=== PATIENT | male | born 1975 | race Caucasian/White ===

== ENCOUNTER 2022-05-11 16:19 | Emergency (ER) | payer BC, SELFPAY ==
[2022-05-11 16:24] VITALS: BP 144/92; RESP 18; TEMP 36.6; O2SAT 95; BMI 45.4
[2022-05-11] MEDS: 0.9 % SODIUM CHLORIDE 1000 ml 1,000 ML IV ×2 (17:07→18:41)
[2022-05-11 17:21] LABS: Basophils Absolute Auto 0.02 K/uL (0.00-0.30); Basophils Percent Auto 0.2 % (0.0-3.0); Hematocrit 41.4 % (37.0-53.0); Hemoglobin* 14.2 gm/dL (13.5-17.5); Immature Granulocytes Abs Auto 0.03 K/uL (0.00-0.30); Lymphocytes Percent Auto 17.8 % (20-44); Mean Corpuscular HGB Conc 34 gm/dL (32-36); Mean Corpuscular Hemoglobin 31 pg (26-34); Mean Corpuscular Volume 91 fL (80-100); Monocytes Percent Auto 5.9 % (0.0-11.0); Neutrophils Percent Auto 75.8 % (42.0-72.0); Platelet Count* 271 K/uL (140-440); RDW Coefficient of Variation % 12.2 % (11.5-15.5); Red Blood Count 4.54 m/uL (4.30-5.90); White Blood Count* 10.33 K/uL (4.50-11.00)
[2022-05-11 17:31] LABS: Troponin, Point-of-Care* 0.01 ng/ml (0.01-0.04)
[2022-05-11 17:32] LABS: Chloride* 102 mmol/L (96-114); Sodium* 137 mmol/L (135-149)
[2022-05-11 17:34] LABS: Slide Review Reflex No
[2022-05-11 17:35] LABS: Creatinine* 0.8 mg/dL (0.5-1.5); Est. Creatinine Clearance* 141.65; Estimated Glomerular Filt Rate 111 ml/min
[2022-05-11 17:36] LABS: Blood Urea Nitrogen* 14 mg/dL (5-24); Calcium* 8.9 mg/dL (8.4-10.6); Carbon Dioxide* 26 mmol/L (20-32); Glucose* 114 mg/dL (60-115)
[2022-05-11 17:39] LABS: C Reactive Protein* 0.7 mg/dL (0.5-1.0)
--- NOTE | 2022-05-11 17:52 | CRLHL7_ITS ---
For Patients: As a result of the Century Cures Act, medical imaging exams and procedure reports are released immediately into your electronic medical record. You may view this report before your referring provider. If you have questions, please contact your health care provider. INDICATION: Evaluate for aneurysm. TECHNIQUE: Noncontrast CT images acquired through the brain. COMPARISON: None. FINDINGS: The ventricles and sulci are within normal limits for patient age. No mass effect or midline shift. The holley-white differentiation is maintained. No acute intracranial hemorrhage or pathologic extra-axial fluid collection. The globes are symmetric. The calvarium is intact. The visualized paranasal sinuses and mastoid air cells are clear. IMPRESSION: No acute intracranial hemorrhage or mass effect. Please note that all CT scans at this facility use dose modulation, iterative reconstruction, and/or weight-based dosing when appropriate to reduce radiation dose to as low as reasonably achievable. Dictated by Feliberto Washburn MD @ 05/11/2022 6:24:38 PM (Electronically Signed)
--- NOTE | 2022-05-11 17:52 | CT_ITS ---
Patient: ONEIL SMILEY Facility:?[facility] Patient ID:?[id number] Site Patient ID:?[id number]. Site :?1975 Study:?CT-Neck Angio Angio W/ 95CC [id number]/22/2022 6:20:41 PM Ordering Physician:Igor Fonseca Final Report: INDICATION: Severe headache. TECHNIQUE: CTA neck with contrast bolus tracking and 3D MIP reconstruction. FINDINGS: There is no carotid or vertebral artery stenosis or dissection. The soft tissues of the neck are within normal limits. The cervical spine is in normal alignment. IMPRESSION: Unremarkable neck CTA. Please note that all CT scans at this facility use dose modulation, iterative reconstruction, and/or weight-based dosing when appropriate to reduce radiation dose to as low as reasonably achievable. Dictated by Jaskaran Melendez MD @ 05/12/2022 1:00:36 PM Signed by:?Jaskaran Melendez MD @05/12/2022 1:00:36 PM (Electronic Signature)
--- NOTE | 2022-05-11 17:52 | CT_ITS ---
Patient: ONEIL SMILEY Facility:?[facility] Patient ID:?[id number] Site Patient ID:?[id number]. Site :?1975 Study:?CT-Head Angio W/ 95CC [id number]/22/2022 6:20:45 PM Ordering Physician:Igor Fonseca Final Report: INDICATION: Severe headache. TECHNIQUE: CTA head with contrast bolus tracking and 3D MIP reconstruction. FINDINGS: There is normal opacification of the intracranial vasculature. There is no large vessel occlusion. No aneurysm is identified. IMPRESSION: Unremarkable head CTA. Please note that all CT scans at this facility use dose modulation, iterative reconstruction, and/or weight-based dosing when appropriate to reduce radiation dose to as low as reasonably achievable. Dictated by Jaskaran Melendez MD @ 05/12/2022 12:58:51 PM Signed by:?Jaskaran Melendez MD @05/12/2022 12:58:51 PM (Electronic Signature)
[2022-05-11 17:57] LABS: D Dimer Quantitative* 0.38 ug/ml (0.00-0.50)
[2022-05-11 18:01] LABS: PCR FLU A Negative PCR FLU A (Negative); PCR FLU B Negative PCR FLU B (Negative); PCR RSV Negative PCR RSV (Negative)
[2022-05-11 18:03] LABS: SARS PCR* Negative SARS-CoV-2 (Negative)
[2022-05-11] MEDS: diphenhydrAMINE 25 MG in 0.9 % SODIUM CHLORIDE 100 ml 100 ML 402 MG IVPB (18:42)
[2022-05-11] MEDS: METOCLOPRAMIDE HCL 10 MG in 0.9 % SODIUM CHLORIDE 100 ml 100 ML 306 MG IVPB (19:18)
[2022-05-11 19:43] VITALS: BP 138/92; PULSE 70; RESP 16; O2SAT 98
[2022-05-11 20:18] VITALS: BP 138/92; PULSE 70; RESP 16; TEMP 36.6
--- NOTE | 2022-05-11 22:27 | ED_ITS ---
HPI - Headache General Date Seen: 05/11/22 Chief Complaint: Headache/Migraine Stated Complaint: Headaches Time Seen by Provider: 05/11/22 16:21 Source: patient Mode of arrival: ambulatory Limitations: no limitations History of Present Illness HPI Narrative: Patient is a really nice 46-year-old gentleman who presents here with a headache, he described as bitemporal, it is pulsing whenever he bends down, or comes back. He noted a little bit of blurry vision yesterday, but overall he feels his visions normal, he feels slightly nauseous but has not vomited. His appetite remains normal he denies any numbness tingling or weakness in his hands or feet, he has had no fevers or chills associated with this. No recent camping or travel noted. He has a history of headaches, but says this is worse than his normal headache, does not exertional based and did not come on with exertion. Denies a history of meth family or personally of any aneurysmal disease kidney disease, no history of falls or injury. He has started however 4 days ago Medrol Dosepak, for shoulder discomfort. He wonders if this is related to this. MD elicited complaint: headache Onset description: gradually Location: right, left and temporal Severity: moderate Quality & Timing: throbbing and pulsatile Exacerbating factors: none Relieving factors: nothing Context: occurred at rest Associated symptoms: nausea and lightheadedness Treatments prior to arrival: acetaminophen and ibuprofen Related Data Home Medications Medication Instructions Recorded Confirmed ibuprofen 200 mg tablet mg PO .Q6h Prn 03/21/22 05/11/22 naproxen sodium 220 mg tablet 220 mg PO BID 03/21/22 05/11/22 Previous Rx's Medication Instructions Recorded gabapentin 300 mg capsule 300 - 600 mg PO TID 90 days #360 03/21/22 caps methylprednisolone 4 mg tablet See Rx Instructions PO QAM #21 tabs 05/08/22 (Medrol) antiarthritic combination no.2 900 See Rx Instructions PO DAILY #30 05/11/22 mg tablet (glucosamine-chondroitin) tabs Allergies Allergy/AdvReac Type Severity Reaction Status Date / Time acetaminophen AdvReac Intermediate Nausea Verified 05/11/22 18:08 hydrocodone AdvReac Intermediate Nausea Verified 05/11/22 18:08 Review of Systems Status of ROS: Reports: 10 or more systems reviewed and unremarkable except as noted in History and below [facility] Medical History History of blood clots Surgical History History of knee surgery History of repair of anterior cruciate ligament History of rotator cuff surgery History of thumb surgery Family History Mother Breast cancer, Onset Age: 37 Father Stroke, Onset Age: 52 High blood pressure Paternal Grandmother Skin cancer, Onset Age: 72 Sister Thyroid cancer, Onset Age: 40 Social History Narrative: alcohol ingestion, 1-4 drinks/week - 2-3 drinks per week does not use illicit drugs former smoker Smoking Status: Former smoker Do you use any of these nicotine containing products: None Second hand tobacco smoke exposure: Yes How often do you have a drink containing alcohol: 4 or more times a week How many standard drinks containing alcohol do you have on a typical day: 1 or 2 How often do you have six or more drinks on one occasion: Never AUDIT-C Alcohol total score: 4 Non-prescribed substance use: denies use service: No Exam Narrative: Exam Narrative: Patient is in no apparent distress in room 6, I enter the room and there is no evidence of any photophobia. He is nontoxic in speaking to me normally, speech is normal. Pupils are equal round reactive to light there is no scleral icterus or redness TMs are normal oropharynx is normal there is no adenopathy anterior posterior chains, neck is supple full range of motion with absence of meningismus. Cranial nerves 3-12 are normal. Oropharynx is normal, TMs are normal, neck has excellent full range of motion of flexion extension lateral flexion there is no nystagmus. Chest is clear bilaterally no wheezing crackles noted heart sounds are normal abdomen is soft and obese there is no guarding no past splenomegaly, normal bowel sounds. CV shows normal S1-S2 there is no S3-S4 clicks murmurs or gallops. Skin reveals no petechiae or rashes, neurologically intact in his upper lower extremities with symmetrical bilaterally strong both proximal distal muscle strength which is assessed and normal. Fine motor movements fingers nose testing are normal. Thoracic and lumbar spine are nontender to palpation percussion, an as negative also has a cervical spine. Const: Vital Signs, click to edit/add: Vital Signs - 24 hr 05/11/22 16:24 05/11/22 19:43 05/11/22 20:18 Temperature 98 F 98 F Pulse Rate [Pulse Oximeter] 70 70 Respiratory Rate 18 16 16 Blood Pressure [Le ft Upper Arm] 144/92 H 138/92 H 138/92 H Pulse Oximetry 95 98 Oxygen Delivery Me thod Room Air Room Air Course Course Hospital Course: Patient's headache here improved with the use of the Reglan, along with the Benadryl and fluids. I discussed with him that his laboratory tests were normal, with a negative D-dimer normal EKG, normal WBC, and no evidence of infection on examination his COVID swabs are negative also. I suspect that his headache comes from the use of the Medrol, which is a side effect of steroid specially at the high dose. Reassuring head CT along with a head CTA and neck CTA is also helpful. We will let him go home and have him stop his medications, he was comfortable this plan. Vital Signs Vital signs: Initial Vital Signs Temperature 98 F 05/11/22 16:24 Temperature Source Temporal Artery Scan 05/11/22 16:24 Pulse Rhythm 05/11/22 16:24 Respiratory Rate 18 05/11/22 16:24 Blood Pressure 144/92 H 05/11/22 16:24 Blood Pressure Mean 109 05/11/22 16:24 Pulse Oximetry 95 05/11/22 16:24 Oxygen Delivery Method 05/11/22 16:24 Vital Signs Temperature 98 F 05/11/22 16:24 Respiratory Rate 18 05/11/22 16:24 Blood Pressure 144/92 H 05/11/22 16:24 Pulse Oximetry 95 05/11/22 16:24 Oxygen Delivery Method 05/11/22 16:24 Temperature 98 F 05/11/22 20:18 Pulse Rate 70 05/11/22 20:18 Respiratory Rate 16 05/11/22 20:18 Blood Pressure 138/92 H 05/11/22 20:18 Pulse Oximetry 98 05/11/22 19:43 Oxygen Delivery Method 05/11/22 19:43 MDM - Headache MDM Narrative Medical decision making narrative: Life-threatening differential diagnosis include subarachnoid hemorrhage, meningitis, encephalitis, carbon monoxide poisoning, and intracerebral hemorrhage. Other differential diagnosis include but not limited to migraine, cluster headache, tension headache, [employer] vasculitis, mass lesion, temporal arteritis, click acute closed angle glaucoma, septal and trigeminal neuralgia, sinusitis, closed head injury, and stroke Medical Records Attestation: I reviewed the patient's medical records. Lab Data Attestation: I reviewed the patient's lab results. Labs: Lab Results 05/11/22 05/11/22 05/11/22 Range/Units 17:00 17:00 17:00 WBC 10.33 (4.50-11.00) K/uL RBC 4.54 (4.30-5.90) m/uL Hgb 14.2 (13.5-17.5) gm/dL Hct 41.4 (37.0-53.0) % MCV 91 (80-100) fL MCH 31 (26-34) pg MCHC 34 (32-36) gm/dL RDW Coeff of Tiera 12.2 (11.5-15.5) % Plt Count 271 (140-440) K/uL Neut % (Auto) 75.8 H (42.0-72.0) % Lymph % (Auto) 17.8 L (20-44) % O'Brien % (Auto) 5.9 (0.0-11.0) % Eos % (Auto) 0.0 (0.0-7.0) % Baso % (Auto) 0.2 (0.0-3.0) % Neut # (Auto) 7.80 H (1.7-7.0) K/uL Lymph # (Auto) 1.80 (0.90-2.90) K/uL O'Brien # (Auto) 0.60 (0.00-0.90) K/UL Eos # (Auto) 0.00 (0.00-0.50) K/uL Baso # (Auto) 0.02 (0.00-0.30) K/uL Abs Immat Gran (auto) 0.03 (0.00-0.30) K/uL D-Dimer Quant (PE/DVT) 0.38 (0.00-0.50) ug/ml Sodium 137 (135-149) mmol/L Potassium 4.0 (3.6-5.1) mmol/L Chloride 102 (96-114) mmol/L Carbon Dioxide 26 (20-32) mmol/L BUN 14 (5-24) mg/dL Creatinine 0.8 (0.5-1.5) mg/dL Estimated Creat Clear 141.65 Estimated GFR 111 ml/min Glucose 114 (60-115) mg/dL Calcium 8.9 (8.4-10.6) mg/dL C-Reactive Protein 0.7 (0.5-1.0) mg/dL SARS-CoV-2 (PCR) (Negative) Influenza Type A (PCR) (Negative) Influenza Type B (PCR) (Negative) RSV (PCR) (Negative) POC Troponin I (0.01-0.04) ng/ml 05/11/22 05/11/22 Range/Units 17:00 17:01 WBC (4.50-11.00) K/uL RBC (4.30-5.90) m/uL Hgb (13.5-17.5) gm/dL Hct (37.0-53.0) % MCV (80-100) fL MCH (26-34) pg MCHC (32-36) gm/dL RDW Coeff of Tiera (11.5-15.5) % Plt Count (140-440) K/uL Neut % (Auto) (42.0-72.0) % Lymph % (Auto) (20-44) % O'Brien % (Auto) (0.0-11.0) % Eos % (Auto) (0.0-7.0) % Baso % (Auto) (0.0-3.0) % Neut # (Auto) (1.7-7.0) K/uL Lymph # (Auto) (0.90-2.90) K/uL O'Brien # (Auto) (0.00-0.90) K/UL Eos # (Auto) (0.00-0.50) K/uL Baso # (Auto) (0.00-0.30) K/uL Abs Immat Gran (auto) (0.00-0.30) K/uL D-Dimer Quant (PE/DVT) (0.00-0.50) ug/ml Sodium (135-149) mmol/L Potassium (3.6-5.1) mmol/L Chloride (96-114) mmol/L Carbon Dioxide (20-32) mmol/L BUN (5-24) mg/dL Creatinine (0.5-1.5) mg/dL Estimated Creat Clear Estimated GFR ml/min Glucose (60-115) mg/dL Calcium (8.4-10.6) mg/dL C-Reactive Protein (0.5-1.0) mg/dL SARS-CoV-2 (PCR) Negative SARS-CoV-2 (Negative) Influenza Type A (PCR) Negative PCR FLU A (Negative) Influenza Type B (PCR) Negative PCR FLU B (Negative) RSV (PCR) Negative PCR RSV (Negative) POC Troponin I 0.01 (0.01-0.04) ng/ml Imaging Data CT scan - head: Attestation: I have reviewed the pertinent imaging results. My impression: Negative head CT, Radiologist's impression: Patient: [facility] Facility: [facility] Site . Site : 1975 Study: CT Head W/O-05/11/2022 6:20:48 PM Ordering Physician: Matthew Fonseca Final Report: INDICATION: Evaluate for aneurysm. TECHNIQUE: Noncontrast CT images acquired through the brain. COMPARISON: None. FINDINGS: The ventricles and sulci are within normal limits for patient age. No mass effect or midline shift. The holley-white differentiation is maintained. No acute intracranial hemorrhage or pathologic extra-axial fluid collection. The globes are symmetric. The calvarium is intact. The visualized paranasal sinuses and mastoid air cells are clear. IMPRESSION: No acute intracranial hemorrhage or mass effect. Please note that all CT scans at this facility use dose modulation, iterative reconstruction, and/or weight-based dosing when appropriate to reduce radiation dose to as low as reasonably achievable. Dictated by Feliberto Washburn MD @ 05/11/2022 6:24:38 PM (Electronic Signature) Patient: [facility] Facility: [facility] Site . Site : 1975 Study: CT Neck Angio Angio W/ 95CC [id number]/22/2022 6:20:41 PM Ordering Physician: Matthew Fonseca Preliminary Report: No intracranial aneurysm, arterial stenosis, or dissection. Read by: Feliberto Washburn MD @ 05/11/2022 18:28:56 Patient: ONEIL SMILEY Facility: [facility] Site . Site : 1975 Study: CT Head Angio W/ 95CC [id number]/22/2022 6:20:45 PM Ordering Physician: Matthew Fonseca Preliminary Report: No intracranial aneurysm, arterial stenosis, or dissection. Read by: Feliberto Washburn MD @ 05/11/2022 18:28:46 ECG Data Attestation: I personally reviewed and interpreted this ECG as follows: ECG interpretation date: 05/11/22 Prior ECG tracings: not available for review Interpretation: EKG shows normal sinus rhythm with a ventricular rate of 69 occasional PVCs are noted, nonspecific interventricular conduction delay, no ST wave changes, Assessment nonacute EKG Discharge Plan Discharge Clinical Impression: Drug side effects, Headache Patient Disposition: Home, Self-Care Condition: Stable Instructions: Tension Headache (ED), Acute Headache (DC), Adverse Drug Reaction (ED) Additional Instructions: RECOMMEND STOPPING YOUR STEROID, I THINK THIS IS THE CAUSE OF YOUR ISSUES, follow-up with primary care for more help with this. But rate now all your blood tests and your CT scans were reassuring you may. May use Tylenol Prescriptions: No Action ibuprofen 200 mg tablet PO .Q6h Prn naproxen sodium 220 mg tablet 220 mg PO BID gabapentin 300 mg capsule 300 - 600 mg PO TID 90 Days Qty: 360 3RF methylprednisolone [Medrol] 4 mg tablet See Rx Instructions PO QAM Qty: 21 0RF Rx Instructions: 6 tabs day 1 today. Reduce by 1 tab daily until final tab remains. orally every morning; glucosamine-chondroitin 900 mg tablet See Rx Instructions PO DAILY Qty: 30 0RF Rx Instructions: 1 tab orally daily; Follow Up/Referrals: Suri Gonzalez DO [Primary Care Provider] - Stand Alone Forms: MyHealth Info Instructions
--- OUTSIDE RECORDS SUMMARY | 2022-05-19 10:43 | XMS_ITS | Encounter Summary ---
:1975 Author Organization [facility] Address [address] [place] [address] Care Team Providers Name Role Phone Diego Herrmann MD Primary Care Provider [phone] Adonis Stanford MD Unavailable [phone] Encounter Details Date Type Department Care Team Description 08/18/2020 Travel Social History Tobacco Use Types Packs/Day Years Used Date Former Smoker Cigarettes 0.5 3 Smokeless Tobacco: Never Used Comments: quit in 2006 Alcohol Use Standard Drinks/Week Comments Yes 0 (1 standard drink = 0.6 oz pure alcoho l) Alcohol Habits Answer Date Recorded How often do you have a drink containing alcohol? Never 05/28/2020 How many drinks containing alcohol do you have on a typical Not asked 05/28/2020 day when you are drinking? How often do you have six or more drinks on one occasion? Ne evy 05/28/2020 Comment: Not asked Sex Assigned at Date Recorded Not on file COVID-19 Exposure Response Date Recorded In the last month, have you been in contact with No / Unsure 08/18/2020 4:40 PM MAST [employer] someone who was confirmed or suspected to have Coronavirus / COVID-19? documented as of this encounter Plan of Treatment Not on filedocumented as of this encounter Visit Diagnoses Not on filedocumented in this encounter Care Teams [employer] Relationship Specialty Start Date End Date Diego Herrmann MD PCP - General 05/13/20 Adonis Stanford Assigned Heart and Vascular 0 12/17/21 MD Misael Provider [address] [place], [place] [id number] [place] [id number] documented as of this encounter
--- OUTSIDE RECORDS SUMMARY | 2022-05-19 10:43 | XMS_ITS | Clinical Summary ---
:1975 Author Organization [facility] Address [address] [place] [address] Care Team Providers Name Role Phone Diego Herrmann MD Primary Care Provider [phone] Allergies Active Allergy Reactions Severity Noted Date Comments Acetaminophen Nausea 03/08/2020 Hydrocodone Nausea 03/08/2020 Hydrocodone-Acetaminophen Nausea 04/23/2018 Medications No known medications Active Problems No known active problems Immunizations Name Administration Dates Next Due Influenza Vaccine IM > 6 months Valent 06/30/2020, , 10/29/2018 IIV4 (Alfuria,Fluzone) Social History Tobacco Use Types Packs/Day Years Used Date Former Smoker Cigarettes 0.5 3 Smokeless Tobacco: Never Used Tobacco Cessation: Counseling Given: Yes Comments: quit in 2006 Alcohol Use Standard [...] Assigned at Date Recorded Not on file Last Filed Vital Signs Vital Sign Reading Time Taken Comments Blood Pressure 127/80 05/28/2020 11:12 AM CDT Pulse 74 05/28/2020 11:11 AM CDT Temperature - - Respiratory Rate 16 05/28/2020 11:11 AM CDT Oxygen Saturation 96% 05/28/2020 11:11 AM CDT Inhaled Oxygen Concentration - - Weight 173.7 kg (383 lb) 05/28/2020 11:11 AM CDT Height 193 cm (6' 4) 05/28/2020 11:11 AM CDT Body Mass Index 46.62 05/28/2020 11:11 AM CDT Plan of Treatment Health Maintenance Due Date Last Done Comments ADVANCE CARE PLANNING 1975 ANNUAL REVIEW OF HM ORDERS 1975 CT COLONOGRAPHY 1975 FIT-DNA (Cologuard) 1975 FIT 1975 FLEX SIG 1975 PREVENTIVE CARE VISIT 1975 COVID-19 Vaccine (#1) 1975 COLONOSCOPY 1985 COLORECTAL CANCER SCREENING 1985 HIV SCREENING 1990 HEPATITIS C SCREENING 1993 DTAP/TDAP/TD IMMUNIZATION 2000 (1 - Tdap) LIPID 2010 PHQ-2 (once per calendar 08/20/2021 year) INFLUENZA VACCINE (#1) 2022 06/30/2020, 06/30/2020, 04/17/2019, Additional history exists HEPATITIS B IMMUNIZATION Aged Out No long er eligible based on patient 's age to complete this topic IPV IMMUNIZATION Aged Out No longer eligi ble based on patient 's age to complete this topic MENINGITIS IMMUNIZATION Aged Out No longe r eligible based on patient 's age to complete this topic Pneumococcal Vaccine: Aged Out No longer eligible Pediatrics (0 to 5 Years) based on patient's age and At-Risk Patients (6 to to co mplete this topic 64 Years) Insurance Payer Benefit Plan / Subscriber ID Effective Dates Phone Addre ss Type Group BCBS BCBS OF [place] [id number] 2016-Ritika [phone] [address] [address] Indemnity t 0 [place] [address] [address] [place] [address] Care Teams Commercial Print Salesman Relationship Specialty Start Date End Date Diego Herrmann MD PCP - General 05/13/20
--- OUTSIDE RECORDS SUMMARY | 2022-05-19 10:44 | XMS_ITS | Encounter Summary ---
:1975 Author Organization [facility] Address [address] [place] [address] Care Team Providers Name Role Phone Diego Herrmann MD Primary Care Provider [phone] Adonis Stanford MD Unavailable [phone] Reason for Visit Rehab Therapy Integrated Services (Routine) - Closed Specialty Diagnoses / Procedures Referred By Contact Refer red To Contact Diagnoses Back pain, falls Weakness order sent to chart [facility] [address] [place], [place] [address] Phone: Fax: Referral ID Status Reason Start Date Expiration Date Visits Requ ested Visits Authorized [id number] Closed 06/30/2020 08/19/2020 365 365 Encounter Details Date Type Department Care Team Description 07/26/2020 Hospital Encounter [facility] Adonis Stanford MD [address] [facility] [address] [place] [id number] Rehabilitation Services Ileana Deras, PT [facility] [address] [place] [address] Social History Tobacco Use Types Packs/Day Years [...] been in contact with No / Unsure 07/26/2020 4:50 PM CONTINUITY COORDINATOR someone who was confirmed or suspected to have Coronavirus / COVID-19? documented as of this encounter Plan of Treatment Not on filedocumented as of this encounter Visit Diagnoses Not on filedocumented in this encounter Care Teams Purchaser Automotive Parts Relationship Specialty Start Date End Date Diego Herrmann MD PCP - General 05/13/20 Adonis Stanford Assigned Heart and Vascular 0 12/17/21 MD Misael Provider [address] [place] [id number] documented as of this encounter
--- OUTSIDE RECORDS SUMMARY | 2022-05-19 10:44 | XMS_ITS | Encounter Summary ---
:1975 Author Organization [facility] Address [address] [place] [address]. [place] [address] Care Team Providers Name Role Phone Diego Herrmann MD Primary Care Provider [phone] Adonis Stanford MD Unavailable [phone] Encounter Details Date Type Department Care Team Description 06/18/2020 Medical Correspond[facility], ADULT REHAB ORDER Health Info Mgmt Non-Provider DR [facility] [address] [place] [address] Social History Tobacco Use Types Packs/Day Years [...] been in contact with No / Unsure 06/18/2020 11:06 AM CDT someone who was confirmed or suspected to have Coronavirus / COVID-19? documented as of this encounter Plan of Treatment Not on filedocumented as of this encounter Visit Diagnoses Not on filedocumented in this encounter Care Teams Claims Collector Relationship Specialty Start Date End Date Diego Herrmann MD PCP - General 05/13/20 Adonis Stanford Assigned Heart [facility] Vascular 0 12/17/21 MD Misael Provider [address] [place] [address] documented as of this encounter
--- OUTSIDE RECORDS SUMMARY | 2022-05-19 10:44 | XMS_ITS | Encounter Summary ---
:1975 Author Organization [facility] Address [address] [place] [address] Care Team Providers Name Role Phone Diego Herrmann MD Primary Care Provider [phone] Adonis Stanford MD Unavailable [phone] Encounter Details Date Type Department Care Team Description 06/15/2020 Travel Social History Tobacco Use Types Packs/Day Years Used Date Former Smoker Cigarettes 0.5 3 Smokeless Tobacco: Never Used Comments: quit in 2006 Alcohol Use Standard Drinks/Week Comments Never 0 (1 standard drink = 0.6 oz [...] been in contact with No / Unsure 06/15/2020 11:15 AM CDT someone who was confirmed or suspected to have Coronavirus / COVID-19? documented as of this encounter Plan of Treatment Not on filedocumented as of this encounter Visit Diagnoses Not on filedocumented in this encounter Care Teams Financial Secretary Relationship Specialty Start Date End Date Diego Herrmann MD PCP - General 05/13/20 Adonis Stanford Assigned Heart and Vascular 0 12/17/21 MD Misael Provider [address] [place], [place] [id number] [place] [id number] documented as of this encounter
--- OUTSIDE RECORDS SUMMARY | 2022-05-19 10:44 | XMS_ITS | Encounter Summary ---
:1975 Author Organization [facility] Address [address] [place] [address] Care Team Providers Name Role Phone Diego Herrmann MD Primary Care Provider [phone] Adonis Stanford MD Unavailable [phone] Encounter Details Date Type Department Care Team Description 06/11/2020 Travel Social History Tobacco Use Types Packs/Day [...] been in contact with No / Unsure 06/11/2020 12:48 PM CDT someone who was confirmed or suspected to have Coronavirus / COVID-19? documented as of this encounter Plan of Treatment Not on filedocumented as of this encounter Visit Diagnoses Not on filedocumented in this encounter Care Teams Jig Boring Machine Operator For Metal Relationship Specialty Start Date End Date Diego Herrmann MD PCP - General 05/13/20 Adonis Stanford Assigned Heart and Vascular 0 12/17/21 MD Misael Provider [address] [place], [place] [id number] [place] [id number] documented as of this encounter
--- OUTSIDE RECORDS SUMMARY | 2022-05-19 10:44 | XMS_ITS | Encounter Summary ---
:1975 Author Organization [address] [place] [address] Care Team Providers Name Role Phone Diego Herrmann MD Primary Care Provider [phone] Adonis Stanford MD Unavailable [phone] Reason for Visit Rehab Therapy Integrated Services (Routine) - Closed Specialty Diagnoses / Procedures Referred By Contact Refer red To Contact Diagnoses Lymphedema of right lower extremity [facility] [address] [place], [place] [address] Phone: Fax: Referral ID Status Reason Start Date Expiration Date Visits Requ ested Visits Authorized [id number] Closed 06/11/2020 08/19/2020 365 365 Encounter Details Date Type Department Care Team Description 06/18/2020 Hospital Encounter [facility] Adonis Stanford MD [address] [id number] Rehabilitation Services Katherine Koch OT [address] [facility] [address] [place] [address] Social History Tobacco Use Types Packs/Day Years [...] on filedocumented in this encounter Care Teams Gas Plumbing Inspector Relationship Specialty Start Date End Date Diego Herrmann MD PCP - General 05/13/20 Adonis Stanford Assigned Heart and Vascular 0 12/17/21 MD Misael Provider [address] [place] [address] documented as of this encounter
--- OUTSIDE RECORDS SUMMARY | 2022-05-19 10:44 | XMS_ITS | Encounter Summary ---
:1975 Author Organization [facility] Address [address] [place] [address] Care Team Providers Name Role Phone Diego Herrmann MD Primary Care Provider [phone] Adonis Stanford MD Unavailable [phone] Reason for Visit Rehab Therapy Integrated Services (Routine) - Closed Specialty Diagnoses / Procedures Referred By Contact Refer red To Contact Diagnoses Back pain, falls Weakness order sent to chart [facility] [address] [place], [place] [address] Phone: Fax: Referral ID Status Reason Start Date Expiration Date Visits Requ ested Visits Authorized [id number] Closed 06/30/2020 08/19/2020 365 365 Encounter Details Date Type Department Care Team Description 07/28/2020 Hospital Encounter [facility] Adonis Stanford MD [address] [facility] [address] [place] [id number] Rehabilitation Services Ileana Deras, PT [facility] [address] [place] [address] Social History Tobacco Use [...] been in contact with No / Unsure 07/28/2020 5:01 PM BUTTON MACHINE OPERATOR someone who was confirmed or suspected to have Coronavirus / COVID-19? documented as of this encounter Plan of Treatment Not on filedocumented as of this encounter Visit Diagnoses Not on filedocumented in this encounter Care Teams General Education Instructor Relationship Specialty Start Date End Date Diego Herrmann MD PCP - General 05/13/20 Adonis Stanford Assigned Heart and Vascular 0 12/17/21 MD Misael Provider [address] [place] [address] documented as of this encounter
--- OUTSIDE RECORDS SUMMARY | 2022-05-19 10:44 | XMS_ITS | Encounter Summary ---
:1975 Author Organization [facility] Address [facility] [place] [address] Care Team Providers Name Role Phone Diego Herrmann MD Primary Care Provider [phone] Adonis Stanford MD Unavailable [phone] Reason for Visit Rehab Therapy Integrated Services (Routine) - Closed Specialty Diagnoses / Procedures Referred By Contact Refer red To Contact Diagnoses Back pain, falls Weakness order sent to chart [facility] [address] [place], [place] [address] Phone: Fax: Referral ID Status Reason Start Date Expiration Date Visits Requ ested Visits Authorized [id number] Closed 06/30/2020 08/19/2020 365 365 Encounter Details Date Type Department Care Team Description 07/07/2020 Hospital Encounter [facility] Adonis Stanford MD [address] [facility] [address] [place] [address] Canceled Rehabilitation Ileana Deras, PT (Rescheduled) Services [address] [address] Social History Tobacco Use Types Packs/Day [...] been in contact with No / Unsure 07/02/2020 12:13 PM PIPELINE SYSTEMS OPERATOR someone who was confirmed or suspected to have Coronavirus / COVID-19? documented as of this encounter Plan of Treatment Not on filedocumented as of this encounter Visit Diagnoses Not on filedocumented in this encounter Care Teams Anesthesia Attending Relationship Specialty Start Date End Date Diego Herrmann MD PCP - General 05/13/20 Adonis Stanford Assigned Heart and Vascular 0 12/17/21 MD Misael Provider [address] [place] [address] documented as of this encounter
--- OUTSIDE RECORDS SUMMARY | 2022-05-19 10:44 | XMS_ITS | Encounter Summary ---
:1975 Author Organization [facility] Address Counts include 234 beds at the [facility] [place] [address] Care Team Providers Name Role Phone Diego Herrmann MD Primary Care Provider [phone] Adonis Stanford MD Unavailable [phone] Reason for Visit Rehab Therapy Integrated Services (Routine) - Closed Specialty Diagnoses / Procedures Referred By Contact Refer red To Contact Diagnoses Lymphedema of right lower extremity [facility] [address] [place], [place] [address] Phone: Fax: Referral ID Status Reason Start Date Expiration Date Visits Requ ested Visits Authorized [id number] Closed 06/11/2020 08/19/2020 365 365 Encounter Details Date Type Department Care Team Description 07/09/2020 Hospital Encounter [facility] Aodnis Stanford MD [address] [facility] [place] [id number] Rehabilitation Services Feliberto Anderson [facility] [address] [place] [address] [address] Social History Tobacco Use Types [...] been in contact with No / Unsure 07/09/2020 12:49 PM RAILROAD COOK someone who was confirmed or suspected to have Coronavirus / COVID-19? documented as of this encounter Progress Notes Feliberto Anderson Fermín - 07/09/2020 11:59 PM CST Outpatient Occupational Therapy Discharge Note Patient: Eduardo Charles : 1975 Beginning/End Dates of Reporting Period: 06/11/20 to 01/09/2021 Referring Provider: Dr. Stanford Therapy Diagnosis: lymphedema Client Self Report: Objective Measurements: see flowsheet Outcome Measures (most recent score): LLIS not scored; pt did not complete services Goals: Goal Identifier 1 Goal Description In order to improve functional mobility for activities of living, by the completionof intensive treatment, patient and/or caregiver will;Verbalize and/or demonstrate understanding oftechniques to independently manage their lymphedema at home Target Date 08/19/20 Date Met Progress: Goal Identifier 1a Goal Description tolerate gradient compression bandaging/wearing compression garments 23 hrs/day to decrease volume of extracellular fluid Target Date 08/19/20 Date Met 06/22/20 Progress: Goal Identifier 1b Goal Description demonstrate independence in applying gradient compression bandages Target Date 08/19/20 Date Met 06/24/20 Progress: Goal Identifier 1c Goal Description demonstrate independence in performing prescribed exercises to facilate the lymph system Target Date 08/19/20 Date Met Progress: Goal Identifier 1d Goal Description be independent in donning/doffing, wearing schedule, and care of compression garments Target Date 08/19/20 Date Met Progress: Goal Identifier 2 Goal Description Pt will decrease pain and swelling in the RLE to 2/10 with 30 min walking in store. Target Date 08/19/20 Date Met Progress: Goal Identifier Goal Description Target Date Date Met Progress: Goal Identifier Goal Description Target Date Date Met Progress: Progress Toward Goals: Progress this reporting period: Pt and spouse built I with GCB use and reduced LE lymphedema. Pt reported benefits from MLD use and he and spouse were using MLD at home for management as well. Pt was to return for follow up to gauge utility daytime stocking transition and overall home management. Pt has not returned for follow up; pt to be discharged. Plan: Discharge from therapy. Discharge: Reason for Discharge: No further expectation of progress. Patient chooses to discontinue therapy. Equipment Issued: Discharge Plan: cont Home plan documented in this encounter Plan of Treatment Not on filedocumented as of this encounter Visit Diagnoses Not on filedocumented in this encounter Care Teams Certified Travel Counselor Relationship Specialty Start Date End Date Diego Herrmann MD PCP - General 05/13/20 Adonis Stanford Assigned Heart and Vascular 0 12/17/21 MD Misael Provider [address] [place] [address] documented as of this encounter
--- OUTSIDE RECORDS SUMMARY | 2022-05-19 10:44 | XMS_ITS | Encounter Summary ---
:1975 Author Organization [facility] Address Replaced by [facility] [place] [address] Care Team Providers Name Role Phone Diego Herrmann MD Primary Care Provider [phone] Adonis Stanford MD Unavailable [phone] Reason for Referral (Routine) - Closed Specialty Diagnoses / Procedures Referred By Contact Refer red To Contact Diagnoses Varicose veins of leg with pain, right Lymphedema of right lower extremity Morbid obesity (H) Cellulitis of right lower extremity TINA (obstructive sleep apnea) Adonis Stanford MD [address] [facility] [address] [place] [address] Referral ID Status Reason Start Date Expiration Date Visits Requ ested Visits Authorized [id number] Closed 08/17/2020 08/17/2021 1 1 RGY AND IMMUNOLOGY SPECIALIST Reason for Visit Reason Comments Telephone (Routine) - Closed Specialty Diagnoses / Procedures Referred By Contact Refer red To Contact Diagnoses Varicose veins of leg with pain, right Lymphedema of right lower extremity Morbid obesity (H) Cellulitis of right lower extremity TINA (obstructive sleep apnea) Adonis Stanford MD [address] [facility] [address] [place] [address] Referral ID Status Reason Start Date Expiration Date Visits Requ ested Visits Authorized [id number] Closed 05/28/2020 05/28/2021 1 1 Encounter Details Date Type Department Care Team Description 06/16/[address] [facility] Adonis Stanford veins of leg with pain, right ( CEAP 4 CVI RT leg) ; Vascular Clinic Xavier Douglas MD Lymphedema of right lower extremity ( ph shakir -lymphedema) ; [address] Mo rbid obesity (H); [address] Cellulitis of right lower extremity; [place] [address] [place] [address] TINA (obstructive sleep apnea) [phone] Social History Tobacco Use Types Packs/Day Years [...] been in contact with No / Unsure 08/02/2020 4:41 PM ALLERGY AND IMMUNOLOGY SPECIALIST someone who was confirmed or suspected to have Coronavirus / COVID-19? documented as of this encounter Patient Instructions Patient InstructionsGoAdonis stallworth MD - 06/16/2020 1:30 PM CDT Lose weight Continue lymphedema therapy Elevate legs Compression stockings etc Use CPAP See me in spring 2020 to reassess options of venous ablation etc documented in this encounter Progress Notes Adonis Stanford MD - 06/16/2020 1:30 PM CDT Eduardo Charles is a 45 year old male who is being evaluated via a billable telephone visit. The patient has been notified of following: This telephone visit will be conducted via a call between you and your physician/provider. We have found that certain health care needs can be provided without the need for a physical exam. This service lets us provide the care you need with a short phone conversation. If a prescription is necessary we can send it directly to your pharmacy. If lab work is needed we can place an order for that and you can then stop by our lab to have the test done at a later time. Telephone visits are billed at different rates depending on your insurance coverage. During this emergency period, for some insurers they may be billed the same as an in-person visit. Please reach out to your insurance provider with any questions. If during the course of the call the physician/provider feels a telephone visit is not appropriate, you will not be charged for this service. Patient has given verbal consent for Telephone visit? Yes What phone number would you like to be contacted at? [phone] How would you like to obtain your AVS? Mynor Stone MA Provider visit note: Chief complaint: Follow up visit Seen lymphedema therapist Underwent Venous comp test yesterday History of present illness: He was recently seen 3 weeks ago for Evaluation and management of vascular causes of right lower extremity swelling, pain and recent prolonged cellulitis requiring 3 different antibiotics and no history of a DVT venous duplex was negative in october 2019. He is morbidly obese weight >380 lb, with Phle armida-lymphedema. For full details please see my recent clinic visit note Review of systems: Reviewed all 12 point review of systems as per HPI otherwise unremarkable Physical exam:( no physical exam done this is virtual visit) Reviewed recent laboratory tests, imaging studies in the epic and updated chart Assessment and plan: 1. Lymphedema of right lower extremity ( phlebo -lymphedema) 2. Varicose veins of leg with pain, right ( CEAP 4 CVI RT leg) 3. Recent Hx of Cellulitis of right lower extremity ?? This is a very pleasant 45-year-old male morbidly obese with classical features of right lower extremity lymphedema during last in office visit , specifically Phlebo- lymphedema and recent history of prolonged cellulitis requiring 3 different courses of antibiotics and healing leg ulcers and no signs of arterial insufficiency, palpable and dopplerable bilateral pedal pulses He will benefit with compression stockings and elevation of the legs and weight loss Reviewed recent venous comp results, NO DVT GSV , VV incompetency noted continue lymphedema therapist recs and MLD, compression etc. Skin care discussed with the patient See me in the office in spring 2020 ?? 4. Morbid obesity (H) 5. TINA (obstructive sleep apnea) ?? He was evaluated and diagnosed TINA but not using CPAP machine regularly Suggested patient to lose weight Utilize CPAP machine If needed discussed with sleep clinic for proper settings Video Visit Details Type of Service: Video Visit Video Start Time: 1:35 PM Video End Time: 1: 50 PM Originating Location (patient location): Home Distant Location ([facility] Mode of Communication: Video Conference via [employer] This visit is being conducted as a virtual visit due to the emphasis on mitigation of the COVID-19 virus pandemic. The clinician has decided that the risk of an in-office visit outweighs the benefit for this patient. Adonis Stanford MD, [facility], [facility] Vascular Medicine documented in this encounter Miscellaneous Notes Addendum Note - Marleny Chambers RN - 06/16/2020 1:30 PM CDT Addended by: MARLENY CHAMBERS on: 08/17/2020 03:12 PM Modules accepted: Orders RGY AND IMMUNOLOGY SPECIALIST documented in this encounter Plan of Treatment Scheduled Referrals Name Type Priority Associated Diagnoses Order S chedule Follow-Up with Referral Routine Varicose veins of leg Expe cted: 11/18/2020 Vascular Medicine with pain, right ( CEAP (Approximate), 4 CVI RT leg) Expires: 03/19/2021 Lymphedema of right lower extremity ( phlebo -lymphedema) Morbid obesity ( H) Cellulitis of right lower extremity TINA (obstructive sleep apnea) documented as of this encounter Visit Diagnoses Diagnosis Varicose veins of leg with pain, right ( CEAP 4 CVI RT leg) Lymphedema of right lower extremity ( ph shakir -lymphedema) Morbid obesity (H) Morbid obesity Cellulitis of right lower extremity Cellulitis and abscess of leg, except fo ot TINA (obstructive sleep apnea) Obstructive sleep apnea (adult) (pediatr ic) documented in this encounter Care Teams Tight Cooper Relationship Specialty Start Date End Date Diego Herrmann MD PCP - General 05/13/20 Adonis Stanford Assigned Heart and Vascular 0 12/17/21 MD Misael Provider [address] [place] [address] documented as of this encounter
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
--- OUTSIDE RECORDS SUMMARY | 2022-05-19 10:44 | XMS_ITS | Encounter Summary ---
:1975 Author Organization [place] Address [facility] [place] [address] Care Team Providers Name Role Phone Diego Herrmann MD Primary Care Provider [phone] Adonis Stanford MD Unavailable Reason for Visit Rehab Therapy Integrated Services (Routine) - Closed Specialty Diagnoses / Procedures Referred By Contact Refer red To Contact Diagnoses Lymphedema of right lower extremity [facility] [address] [place], [place] [address] Phone: Fax: Referral ID Status Reason Start Date Expiration Date Visits Requ ested Visits Authorized [id number] Closed 06/11/2020 08/19/2020 365 365 Encounter Details Date Type Department Care Team Description 06/22/2020 Hospital Encounter [facility] Adonis Stanford MD [address] [facility] [place] [address] Rehabilitation Services Feliberto Anderson [facility] [address] [place] [address] [address] Social History Tobacco Use [...] been in contact with No / Unsure 06/22/2020 10:55 AM NURSING SERVICES MANAGER someone who was confirmed or suspected to have Coronavirus / COVID-19? documented as of this encounter Plan of Treatment Not on filedocumented as of this encounter Visit Diagnoses Not on filedocumented in this encounter Care Teams Recording Studio Set Up Worker Relationship Specialty Start Date End Date Diego Herrmann MD PCP - General 05/13/20 Adonis Stanford Assigned Heart and Vascular 0 12/17/21 MD Misael Provider [address] [place] [address] documented as of this encounter
--- OUTSIDE RECORDS SUMMARY | 2022-05-19 10:44 | XMS_ITS | Encounter Summary ---
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 documented as of this encounter Plan of Treatment Not on filedocumented as of this encounter Visit Diagnoses Not on filedocumented in this encounter Care Teams Improvement Leader Relationship Specialty Start Date End Date Diego Herrmann MD PCP - General 05/13/20 Adonis Stanford Assigned Heart and Vascular 0 12/17/21 MD Misael Provider [address] [place], [place] [address] [place] [address] documented as of this encounter
--- OUTSIDE RECORDS SUMMARY | 2022-05-19 10:44 | XMS_ITS | Encounter Summary ---
:1975 Author Organization [facility] Address [address] [place] [address] Care Team Providers Name Role Phone Diego Herrmann MD Primary Care Provider [phone] Adonis Stanford MD Unavailable [phone] Encounter Details Date Type Department Care Team Description 07/26/2020 Travel Social History Tobacco Use Types Packs/Day [...] with No / Unsure 07/26/2020 4:50 PM FACING SLITTER someone who was confirmed or suspected to have Coronavirus / COVID-19? documented as of this encounter Plan of Treatment Not on filedocumented as of this encounter Visit Diagnoses Not on filedocumented in this encounter Care Teams Car Framer Relationship Specialty Start Date End Date Diego Herrmann MD PCP - General 05/13/20 Adonis Stanford Assigned Heart and Vascular 0 12/17/21 MD Misael Provider [address] [place], [place] [address] [place] [id number] documented as of this encounter
--- OUTSIDE RECORDS SUMMARY | 2022-05-19 10:44 | XMS_ITS | Encounter Summary ---
:1975 Author Organization [place] Address [facility] [place] [address] Care Team Providers Name Role Phone Diego Herrmann MD Primary Care Provider [phone] Adonis Stanford MD Unavailable [phone] Encounter Details Date Type Department Care Team Description 06/22/[address] [facility] Elva [place] MD [address] [place] [address] [place] [address] [phone] (Wo rk) Social History Tobacco Use Types Packs/Day Years [...] with No / Unsure 06/22/2020 10:55 AM COST SPECIALIST someone who was confirmed or suspected to have Coronavirus / COVID-19? 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 Use compression stockings, elevate leg and follow same instructions given recently Lose weight ?? Continue lymphedema therapy ?? Elevate legs ?? Compression stockings etc ?? Use CPAP ?? See me in spring 2020 to reassess options of venous ablation etc Relayed the above to patient via voice message (OK to LD on Mobile 05/13/2020 Vg). Ileana FLYNN [facility] [phone] SPECIALIST documented in this encounter Plan of Treatment Not on filedocumented as of this encounter Visit Diagnoses Not on filedocumented in this encounter Care Teams Broadcast Traffic Coordinator Relationship Specialty Start Date End Date Diego Herrmann MD PCP - General 05/13/20 Adonis Stanford Assigned Heart and Vascular 0 12/17/21 MD Misael Provider [address] [place] [address] documented as of this encounter
--- OUTSIDE RECORDS SUMMARY | 2022-05-19 10:44 | XMS_ITS | Encounter Summary ---
:1975 Author Organization [place] Address [address] [place] [address] Care Team Providers Name Role Phone Diego Herrmann MD Primary Care Provider [phone] Adonis Stanford MD Unavailable [phone] Encounter Details Date Type Department Care Team Description 06/30/2020 Travel Social History Tobacco Use Types Packs/Day [...] been in contact with No / Unsure 06/30/2020 2:44 PM SENIOR PLANNING ANALYST someone who was confirmed or suspected to have Coronavirus / COVID-19? documented as of this encounter Plan of Treatment Not on filedocumented as of this encounter Visit Diagnoses Not on filedocumented in this encounter Care Teams Rubber Grinder Relationship Specialty Start Date End Date Diego Herrmann MD PCP - General 05/13/20 Adonis Stanford Assigned Heart and Vascular 0 12/17/21 MD Misael Provider [address] [place], [place] [address] [place] [address] documented as of this encounter
--- OUTSIDE RECORDS SUMMARY | 2022-05-19 10:44 | XMS_ITS | Encounter Summary ---
:1975 Author Organization [facility] Address [address] [place] [address] Care Team Providers Name Role Phone Diego Herrmann MD Primary Care Provider [phone] Reason for Visit Reason Onset Date Comments Clinic Care Coordination - Follow-up 05/28/2020 Encounter Details Date Type Department Care Team Description 05/28/[address] [facility] Adonis Stanford [facility] Xavier [place] MD Coordination - [address] [place] [address] [place] [address] (Wo rk) Social History Tobacco Use Types [...] been in contact with No / Unsure 05/28/2020 11:03 AM CDT someone who was confirmed or suspected to have Coronavirus / COVID-19? documented as of this encounter Miscellaneous Notes Telephone Encounter - Jojo Witt - 06/04/2020 11:20 AM CDT Eduardo is scheduled as follows: 06/15/2020 Venous Comp 06/16/2020 Dr. Stanford video Jojo Sherman Telephone Encounter - Ileana Pena RN - 06/03/2020 12:14 PM CDT Called [place] to try to obtain venous competency. In October, he had a Right Venous US. No venous comp on record. Attempted to call patient to let him know this. Left message explaining that I am unable to locate a venous competency study, and that I would ask scheduling to contact him to arrange for this as well as a follow up with Dr. Stanford. [facility] [phone] Telephone Encounter - Jojo Witt - 06/02/2020 3:13 PM CDT Spoke with Eduardo and he states that he had the Venous Competency completed in [place] in January 2020. He wanted to talk with Dr. Sumner nurse to see if this results could be used for this upcomingappointment. Call was transferred to [facility] Medicine triage line. Jojo Sherman Telephone Encounter - Ileana Pena RN - 05/28/2020 2:12 PM CDT Follow up to 05/28/20 Please arrange for ?? Venous Competency (Right) in 2-3 weeks ?? Video follow up visit one week later. Thank you. documented in this encounter Plan of Treatment Not on filedocumented as of this encounter Visit Diagnoses Not on filedocumented in this encounter Care Teams Assignment Manager Relationship Specialty Start Date End Date Diego Herrmann MD PCP - General 05/13/20 documented as of this encounter
--- OUTSIDE RECORDS SUMMARY | 2022-05-19 10:44 | XMS_ITS | Encounter Summary ---
:1975 Author Organization [place] Address [address] [place] [address] Care Team Providers Name Role Phone Diego Herrmann MD Primary Care Provider [phone] Adonis Stanford MD Unavailable [phone] Encounter Details Date Type Department Care Team Description 06/22/2020 Travel Social History Tobacco Use Types Packs/Day [...] with No / Unsure 06/22/2020 10:55 AM HAIRMASTERS MANAGER someone who was confirmed or suspected to have Coronavirus / COVID-19? documented as of this encounter Plan of Treatment Not on filedocumented as of this encounter Visit Diagnoses Not on filedocumented in this encounter Care Teams National Sales Relationship Specialty Start Date End Date Diego Herrmann MD PCP - General 05/13/20 Adonis Stanford Assigned Heart and Vascular 0 12/17/21 MD Misael Provider [address] [place], [place] [address] [place] [address] documented as of this encounter
--- OUTSIDE RECORDS SUMMARY | 2022-05-19 10:44 | XMS_ITS | Encounter Summary ---
:1975 Author Organization [place] Address [address] [place] [address] Care Team Providers Name Role Phone Diego Herrmann MD Primary Care Provider [phone] Adonis Stanford MD Unavailable [phone] Encounter Details Date Type Department Care Team Description 06/16/2020 Travel Social History Tobacco Use Types Packs/Day [...] been in contact with No / Unsure 06/16/2020 1:11 PM CDT someone who was confirmed or suspected to have Coronavirus / COVID-19? documented as of this encounter Plan of Treatment Not on filedocumented as of this encounter Visit Diagnoses Not on filedocumented in this encounter Care Teams Continuous Towel Roller Relationship Specialty Start Date End Date Diego Herrmann MD PCP - General 05/13/20 Adonis Stanford Assigned Heart and Vascular 0 12/17/21 MD Misael Provider [address] [place], [place] [address] [place] [address] documented as of this encounter
--- OUTSIDE RECORDS SUMMARY | 2022-05-19 10:44 | XMS_ITS | Encounter Summary ---
:1975 Author Organization [place] Address [address] [place] [address] Care Team Providers Name Role Phone Diego Herrmann MD Primary Care Provider [phone] Adonis Stanford MD Unavailable [phone] Encounter Details Date Type Department Care Team Description 07/02/2020 Travel Social History Tobacco Use Types Packs/Day [...] with No / Unsure 07/02/2020 12:13 PM BOAT DESIGNER someone who was confirmed or suspected to have Coronavirus / COVID-19? documented as of this encounter Plan of Treatment Not on filedocumented as of this encounter Visit Diagnoses Not on filedocumented in this encounter Care Teams Dry Cell Sealer Relationship Specialty Start Date End Date Diego Herrmann MD PCP - General 05/13/20 Adonis Stanford Assigned Heart and Vascular 0 12/17/21 MD Misael Provider [address] [place], [place] [address] [place] [address] documented as of this encounter
--- OUTSIDE RECORDS SUMMARY | 2022-05-19 10:44 | XMS_ITS | Encounter Summary ---
:1975 Author Organization [facility] Address [address] [place] [address] Care Team Providers Name Role Phone Diego Herrmann MD Primary Care Provider [phone] Adonis Stanford MD Unavailable [phone] Encounter Details Date Type Department Care Team Description 07/28/2020 Travel Social History Tobacco Use Types Packs/Day [...] with No / Unsure 07/28/2020 5:01 PM PROPELLANT CHARGE ZONE ASSEMBLER someone who was confirmed or suspected to have Coronavirus / COVID-19? documented as of this encounter Plan of Treatment Not on filedocumented as of this encounter Visit Diagnoses Not on filedocumented in this encounter Care Teams Loop Sewer Relationship Specialty Start Date End Date Diego Herrmann MD PCP - General 05/13/20 Adonis Stanford Assigned Heart and Vascular 0 12/17/21 MD Misael Provider [address] [place], [place] [address] [place] [address] documented as of this encounter
--- OUTSIDE RECORDS SUMMARY | 2022-05-19 10:44 | XMS_ITS | Encounter Summary ---
:1975 Author Organization [place] Address [address] [place] [address] Care Team Providers Name Role Phone Diego Herrmann MD Primary Care Provider [phone] Encounter Details Date Type Department Care Team Description 05/28/2020 Travel Social History Tobacco Use Types Packs/Day [...] on filedocumented in this encounter Care Teams Genetic Supervisor Relationship Specialty Start Date End Date Diego Herrmann MD PCP - General 05/13/20 documented as of this encounter
--- OUTSIDE RECORDS SUMMARY | 2022-05-19 10:44 | XMS_ITS | Encounter Summary ---
:1975 Author Organization [place] Address [facility] [place] [address] Care Team Providers Name Role Phone Diego Herrmann MD Primary Care Provider [phone] Adonis Stanford MD Unavailable [phone] Reason for Visit Rehab Therapy Integrated Services (Routine) - Closed Specialty Diagnoses / Procedures Referred By Contact Refer red To Contact Diagnoses Back pain, falls Weakness order sent to chart [facility] [address] [place], [place] [address] Phone: Fax: Referral ID Status Reason Start Date Expiration Date Visits Requ ested Visits Authorized [id number] Closed 06/30/2020 08/19/2020 365 365 Encounter Details Date Type Department Care Team Description 06/30/2020 Hospital Encounter [facility] Adonis Stanford MD [address] [facility] [address] [place], [place] [address] Rehabilitation Services Italia Diaz, PT [facility] [address] [place], [place] [address] [facility] [address] [place] [address] Social History Tobacco Use Types [...] with No / Unsure 06/30/2020 2:44 PM DIRECTOR DIGITAL CATALOGUE someone who was confirmed or suspected to have Coronavirus / COVID-19? documented as of this encounter Progress Notes Italia Diaz, PT - 06/30/2020 4:38 PM CST 06/30/20 1400 Quick Adds Type of Visit Initial OP PT Evaluation General Information Start of Care Date 06/30/20 Referring Physician Adonis Stanford MD Orders Evaluate and Treat as Indicated Order Date 06/18/20 Medical Diagnosis Back pain and falls Onset of illness/injury or Date of Surgery 06/18/20 (Referral date (referred from lymphedema therapy)) Precautions/Limitations fall precautions Surgical/Medical history reviewed Yes Pertinent history of current problem (include personal factors and/or comorbidities that impact the POC) Patient has a PMH of L ACL repair, right knee bursal removal, left rotator cuff repair, obesity,cellulitis and back pain khris with rotation in bed. Patient notes his back pain has been getting worse over the last month - was previously getting massages 1x every 2-3 weeks but stopped going about 1 month ago. Patient currently goes to a chiropractor 1x per week but is not sure it helps. Patient reports turning in bed is very painful, worse to the left. Patient reports pain down into his left leg primarily going down to the toes, also has some pain in the right leg down to his toes but less intense. Patient notes he sleeps with a wedge pillow but isnt sure where it should be on his legs. Patient notes back pain is the worst in the morning, unable to stand to go to the bathroom in the morning because of pain, improves within an hour or two. Patient reports he has always been clumsy, tripping on things and running into things. This has not necessarily gotten worse lately, feels like he catches his toes and feet. 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 Yes Have you fallen and had an injury in the past year? No Timed Up and Go score (seconds) NT Is patient a fall risk? Yes;Department fall risk interventions implemented Fall screen comments History of instability and stumbles, frequently bumps into things Functional Scales Functional Scales and Outcomes Oswestry: 44% Pain Patient currently in pain Yes Pain location Back Pain rating 5-7/10 consistently, 10/10 with rolling in bed Pain description (Electric, shocking, stabbing) Pain description comment Sitting in a comfortable position currently, work chair is pretty good but it has been getting worse lately. Pain comments Patient reports that his back pain has been getting worse in the last month, the only thing that has changed is the treatment for his leg and lymphedema Vitals Signs Blood Pressure 124/80 Cognitive Status Examination Orientation orientation to person, place and time Level of Consciousness alert Follows Commands and Answers Questions 100% of the time;able to follow multistep instructions Personal Safety and Judgment intact Memory intact Observation Observation SLR positive bilaterally Integumentary Integumentary Comments Undergoing lymphedema treatment for the right LE, calf garment donned during session Posture Posture Comments Decreased spinal curvatures Palpation Palpation Tenderness to palpation over B PSIS and lower back paraspinals Range of Motion (ROM) ROM Comment Lumbar WFL but increased with repeated flexion and extension, and increased pain at end range in all planes. Left hip ROM limited to 90* by pain, hip IR limited to neutral bilaterally in supine with hip and knee flexed to 90* bilaterally Strength Strength Comments MMT performed in sitting, B LE grossly 4-/5 secondary to pain Bed Mobility Bed Mobility Comments 10/10 pain with rolling, improved with log roll education and implemention Transfer Skills Transfer Comments Able to stand without UE assist, no increase in pain with repeated attempts Gait Gait Comments Patient ambulates with wide BLANKA and decreased gait speed, notes forward flexed posturewith decreased left stance time in the morning with worse pain Balance Special Tests Balance Special Tests Sit to stand reps Balance Special Tests Sit to Stand Reps in 30 Seconds Reps in 30 seconds 9 Height 18 inches Comments Impaired functional LE strength Sensory Examination Sensory Perception Comments Notes numbness in his hands and loss of strength with grid maker bilaterally, also has some numbness and tingling in his feet bilaterally R up to his knee > L up to his ankle Coordination Coordination no deficits were identified Modality Interventions Planned Modality Interventions TENS;Cryotherapy (Traction) Planned Modality Interventions Comments Per therapist discretion Planned Therapy Interventions Planned Therapy Interventions balance training;bed mobility training;gait training;motor coordination training;neuromuscular re- education;ROM;strengthening;stretching;transfer training;manual therapy;joint mobilization Clinical Impression Criteria for Skilled Therapeutic Interventions Met yes, treatment indicated PT Diagnosis Impaired activity tolerance secondary to back pain Influenced by the following impairments Impaired hip ROM, pain, impaired activity tolerance, impaired LE strength, impaired core stabilization, obesity Functional limitations due to impairments Impaired functional LE strength and activity tolerance, decreased quality of life, impaired safety and independence with functional mobility and ADLs Clinical Presentation Evolving/Changing Clinical Presentation Rationale Worsening back pain, increased sensory changes in his hands and feet, lymphedema treatment Clinical Decision Making (Complexity) Moderate complexity Therapy Frequency 2 times/Week (Decreasing in frequency as indicated) Predicted Duration of Therapy Intervention (days/wks) 8 weeks Risk & Benefits of therapy have been explained Yes Patient, Family & other staff in agreement with plan of care Yes Clinical Impression Comments Patient is a 45 year old male presenting to physical therapy with significant activity limitations secondary to pain. Patient presents with impaired hip ROM, high levels oflow back pain with position changes and standing, and impaired balance causing an increased risk forfalls. Patient may benefit from skilled physical therapy to decrease his pain and increase his safety and activity tolerance with functional mobility and ADLs. GOALS PT Eval Goals 1;2;3;4 Goal 1 Goal Identifier HEP Goal Description Patient will demonstrate understanding and compliance to his HEP for continued wellbeing upon discharge from skilled physical therapy. Target Date 08/25/20 Goal 2 Goal Identifier Oswestry Goal Description Patient will complete the Oswestry Disability Index with a score of <25% to demonstrate decreased back pain and improved functional activity tolerance. Target Date 08/25/20 Goal 3 Goal Identifier LE strength Goal Description Patient will complete STS transfers with no UE assist from an 18 inch surface in 30seconds to demonstrate improved LE strength for independent transfers from low surfaces. Target Date 08/25/20 Goal 4 Goal Identifier Standing tolerance Goal Description Patient will report ability to stand for 1 hour with pain <8/10 at worst for increased independence with ADLs and community mobility. Target Date 08/25/20 Total Evaluation Time PT Lars Ma Complexity Minutes (44435) 35 CTOR DIGITAL CATALOGUE documented in this encounter Plan of Treatment Not on filedocumented as of this encounter Visit Diagnoses Not on filedocumented in this encounter Care Teams Internal Controls Consultant Relationship Specialty Start Date End Date Diego Herrmann MD PCP - General 05/13/20 Adonis Stanford Assigned Heart and Vascular 0 12/17/21 MD Misael Provider [address] [place] [address] [facility] [address] [place] [id number] documented as of this encounter
--- OUTSIDE RECORDS SUMMARY | 2022-05-19 10:44 | XMS_ITS | Encounter Summary ---
:1975 Author Organization [place] Address [facility] [place] [address] Care Team Providers Name Role Phone Diego Herrmann MD Primary Care Provider [phone] Adonis Stanford MD Unavailable [phone] Reason for Visit Diagnostic Imaging Ultrasound (Routine) - Closed Specialty Diagnoses / Procedures Referred By Contact Refer red To Contact Diagnoses Varicose veins of leg with pain, right Lymphedema of right lower extremity Cellulitis of right lower extremity Adonis Stanford, Procedures US Venous Competency Right [address] [place] [address] Referral ID Status Reason Start Date Expiration Date Visits Requ ested Visits Authorized [id number] Closed 05/28/2020 05/28/2021 1 1 Encounter Details Date Type Department Care Team Description 06/15/2020 Ancillary Procedure [facility] Tiera Stanford icose veins of leg with pain, right ( CEAP 4 CVI RT leg) ; [facility] Adonis Douglas, Lymphedema of right lower extremity ( phlebo - lymphedema) ; Stevie MONTALVO Cellulitis of right lower extremity; [address] Varico se veins of leg with pain, right; [address] Lymphedema of right lower extremity [address] [place] [address] [place] [phone] (Work) [phone] Social History Tobacco Use Types Packs/Day Years [...] Not on filedocumented as of this encounter Procedures Procedure Name Priority Date/Time Associated Comments Diagnosis US VENOUS COMPETENCY Routine 06/15/2020 2:40 PM Varicose veins of Results for this RIGHT CDT leg with pain, procedure are in right the results Lymphedema of right section. lower extremity Cellulitis of right lower extremity documented in this encounter Results US Venous Competency Right (06/15/2020 2:40 PM CDT) Anatomical Region Laterality Modality Lower Extremity Ultrasound Specimen (Source) Anatomical Location Collection Method / Collectio n Time Received Time / Laterality Volume Impressions 06/22/2020 12:10 PM SMALL BOAT ENGINEER ?Examined by: AVTAR Age: ??45 year old ? Reading MD: ALEXI ?? INDICATION: ??Lymphedema of right lower extremity with cellulitis. ?? Varicose veins of right lower extremity with pain. ?? EXAM TYPE RIGHT LOWER EXTREMITY VENOUS DUPLEX FOR VENOUS INSUFFICIENCY TECHNICAL SUMMARY ?? A duplex ultrasound study using color fl ow was performed, to evaluate the right lower extremity veins for valvular incompetence with the patient in a steep reversed trendelenberg. ?? RIGHT: ?? The deep veins demonstrate phasic flow, compress, and respond to augmentations. ??There is no evidence of DVT. ??The common femoral, and popliteal veins are incompetent and free of thrombus. ?? The GSV demonstrates phasic flow, compre sses, and responds to augmentations from the saphenofemoral ju nction to the ankle with no evidence of thrombus. The greater saphen ous vein measures 11.9 mm at the saphenofemoral junction and 11.9 mm dist ally. The GSV is incompetent from the saphenofemoral junction to the knee with the greatest reflux time of 5461 milliseconds. ??The GSV gives rise to multiple incompetent varicose veins, the largest measures 12.4 mm off the distal thigh that courses medially with a reflux time of 5378 mill iseconds. ?? The AASV is competent (5.1 mm) draining into the saphenofemoral junction. ?? The Giacomini vein is competent (1.7 mm) communicating with the small saphenous vein at the knee level. ?? The SSV demonstrates phasic flow, compre sses, and responds to augmentations from the popliteal space t o the ankle. ??No reflux or thrombus is seen. The saphenopopliteal j unction is competent (3.1 mm). ?? The SSV gives rise to multiple incompete nt varicose veins, the largest measuring 4.2 mm off the proximal calf t hat courses medially with a reflux time of 3695 milliseconds. ?? Perforators: ??There is an incompetent p erforator vein (4.0 ??mm) at 15 cm from medial malleolus that communicates with the GSV. ?? A second incompetent manager massage department vein is found in the lateral mid thigh 11 cm cephalad to the lateral knee crease t hat communicates with a varicose vein measuring 4.1 mm. ?? LEFT: ?? The CFV demonstrates phasic flow, compre sses, and responds to augmentations. ??There is no DVT. ? FINAL SUMMARY: 1. ? No evidence of right lowe r extremity deep vein thrombus. 2. ? Right common femoral, fem oral, and popliteal vein incompetence. 3. ? Right greater saphenous v ein incompetence. 4. ? Right multiple incompeten t manager massage department veins. 5. ? Right varicose vein incom petence. 6. ? The time of incompetence is greater than 500 milliseconds in length. ?? Narrative 06/22/2020 12:10 PM SMALL BOAT ENGINEER Name: ??Eduardo Charles ? Date: June 15, 2020 ? : 1975 Sex: male Adonis Stanford MD IMG US ORDERABLES documented in this encounter Visit Diagnoses Diagnosis Varicose veins of leg with pain, right ( CEAP 4 CVI RT leg) Lymphedema of right lower extremity ( ph shakir -lymphedema) Cellulitis of right lower extremity Cellulitis and abscess of leg, except fo ot documented in this encounter Care Teams Special Education Professor Relationship Specialty Start Date End Date Diego Herrmann MD PCP - General 05/13/20 Adonis Stanford Assigned Heart and Vascular 0 12/17/21 MD Misael Provider [address] [place] [id number] documented as of this encounter
--- OUTSIDE RECORDS SUMMARY | 2022-05-19 10:44 | XMS_ITS | Encounter Summary ---
:1975 Author Organization [place] Address [facility] [place] [address] Care Team Providers Name Role Phone Diego Herrmann MD Primary Care Provider [phone] Adonis Stanford MD Unavailable [phone] Reason for Visit Rehab Therapy Integrated Services (Routine) - Closed Specialty Diagnoses / Procedures Referred By Contact Refer red To Contact Diagnoses Lymphedema of right lower extremity [facility] [address] [place], [place] [address] Phone: Fax: Referral ID Status Reason Start Date Expiration Date Visits Requ ested Visits Authorized [id number] Closed 06/11/2020 08/19/2020 365 365 Encounter Details Date Type Department Care Team Description 07/02/2020 Hospital Encounter [facility] Adonis Stanford MD [address] [facility] [address] [facility] [place] [id number] Rehabilitation Services Feliberto Anderson [facility] [address] [place] [address] [address] Social History Tobacco Use [...] with No / Unsure 07/02/2020 12:13 PM CARD PAINTER someone who was confirmed or suspected to have Coronavirus / COVID-19? documented as of this encounter Plan of Treatment Not on filedocumented as of this encounter Visit Diagnoses Not on filedocumented in this encounter Care Teams Jacquard Lace Weaver Relationship Specialty Start Date End Date Diego Herrmann MD PCP - General 05/13/20 Adonis Stanford Assigned Heart and Vascular 0 12/17/21 MD Misael Provider [address] [place] [address] documented as of this encounter
--- OUTSIDE RECORDS SUMMARY | 2022-05-19 10:44 | XMS_ITS | Encounter Summary ---
:1975 Author Organization [place] Address [address] [place] [address] Care Team Providers Name Role Phone Diego Herrmann MD Primary Care Provider [phone] Adonis Stanford MD Unavailable [phone] Reason for Visit Rehab Therapy Integrated Services (Routine) - Closed Specialty Diagnoses / Procedures Referred By Contact Refer red To Contact Diagnoses Back pain, falls Weakness order sent to chart [facility] [address] [place], [place] [address] Phone: Fax: Referral ID Status Reason Start Date Expiration Date Visits Requ ested Visits Authorized [id number] Closed 06/30/2020 08/19/2020 365 365 Encounter Details Date Type Department Care Team Description 08/02/2020 Hospital Encounter [facility] Adonis Stanford MD [address] [facility] [address] [place] [address] Rehabilitation Services Ileana Deras, PT [facility] [address] [place] [address] Social History Tobacco Use [...] with No / Unsure 08/02/2020 4:41 PM ONCOLOGY TECHNICIAN someone who was confirmed or suspected to have Coronavirus / COVID-19? documented as of this encounter Plan of Treatment Not on filedocumented as of this encounter Visit Diagnoses Not on filedocumented in this encounter Care Teams Vaccine Specialist Relationship Specialty Start Date End Date Diego Herrmann MD PCP - General 05/13/20 Adonis Stanford Assigned Heart and Vascular 0 12/17/21 MD Misael Provider [address] [place] [address] documented as of this encounter
--- OUTSIDE RECORDS SUMMARY | 2022-05-19 10:44 | XMS_ITS | Encounter Summary ---
:1975 Author Organization [place] Address [facility] [place] [address] Care Team Providers Name Role Phone Diego Herrmann MD Primary Care Provider [phone] Adonis Stanford MD Unavailable Reason for Visit Rehab Therapy Integrated Services (Routine) - Closed Specialty Diagnoses / Procedures Referred By Contact Refer red To Contact Diagnoses Lymphedema of right lower extremity [facility] [address] [place], [place] [address] Phone: Fax: Referral ID Status Reason Start Date Expiration Date Visits Requ ested Visits Authorized [id number] Closed 06/11/2020 08/19/2020 365 365 Encounter Details Date Type Department Care Team Description 07/01/2020 Hospital Encounter [facility] Adonis Stanford MD [address] [facility] [address] [facility] [place] [address] Rehabilitation Services Feliberto Anderson [facility] [address] [place] [address] [address] Social History Tobacco Use [...] with No / Unsure 07/01/2020 11:07 AM 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 documented as of this encounter Plan of Treatment Not on filedocumented as of this encounter Visit Diagnoses Not on filedocumented in this encounter Care Teams Scalloper Relationship Specialty Start Date End Date Diego Herrmann MD PCP - General 05/13/20 Adonis Stanford Assigned Heart and Vascular 0 12/17/21 MD Misael Provider [address] [place] [id number] documented as of this encounter
--- OUTSIDE RECORDS SUMMARY | 2022-05-19 10:44 | XMS_ITS | Encounter Summary ---
:1975 Author Organization [place] Address [address] [place] [address] Care Team Providers Name Role Phone Diego Herrmann MD Primary Care Provider [phone] Adonis Stanford MD Unavailable [phone] Encounter Details Date Type Department Care Team Description 06/18/2020 Travel Social History Tobacco Use Types Packs/Day [...] on filedocumented in this encounter Care Teams Executive Kitchen Manager Relationship Specialty Start Date End Date Diego Herrmann MD PCP - General 05/13/20 Adonis Stanford Assigned [facility] V[facility] 0 12/17/21 MD Misael Provider [address] [place], [place] [id number] [place] [id number] documented as of this encounter
--- OUTSIDE RECORDS SUMMARY | 2022-05-19 10:44 | XMS_ITS | Encounter Summary ---
:1975 Author Organization [facility] Address [address] [place] [address] Care Team Providers Name Role Phone Diego Herrmann MD Primary Care Provider [phone] Reason for Referral Diagnostic Imaging Ultrasound (Routine) - Closed Specialty Diagnoses / Procedures Referred By Contact Refer red To Contact Diagnoses Varicose veins of leg with pain, right Lymphedema of right lower extremity Cellulitis of right lower extremity Adonis Stanford, Procedures US Venous Competency Right [address] [place] [address] Referral ID Status Reason Start Date Expiration Date Visits Requ ested Visits Authorized [id number] Closed 05/28/2020 05/28/2021 1 1 (Routine) - Closed Specialty Diagnoses / Procedures Referred By Contact Refer red To Contact Diagnoses Varicose veins of leg with pain, right Lymphedema of right lower extremity Morbid obesity (H) Cellulitis of right lower extremity TINA (obstructive sleep apnea) Adonis Stanford MD [address] [place] [address] Referral ID Status Reason Start Date Expiration Date Visits Requ ested Visits Authorized [id number] Closed 05/28/2020 05/28/2021 1 1 Rehab Therapy Integrated Services (Routine) - Closed Specialty Diagnoses / Procedures Referred By Contact Refer red To Contact Diagnoses Lymphedema of right lower extremity [facility] [address] [place] [address] Phone: Fax: Referral ID Status Reason Start Date Expiration Date Visits Requ ested Visits Authorized [id number] Closed 06/11/2020 08/19/2020 365 365 Reason for Visit Reason Comments RECHECK Ref by Dr. Clark for rig ht leg pain, swelling, and cellulitis; 10/21/19 RLE venous US negative for DVT; notes available in nurse office. *vg Encounter Details Date Type Department Care Team Description 05/28/2020 Office Visit [facility] Adonis Stanford Lymp hedema of right lower extremity ( phlebo -lymphedema) (Primary Dx); Vascular Clinic Xavier Douglas MD Varicose veins of leg with pain, right ( CEAP 4 CVI RT leg) ; [address] Mo rbid obesity (H); [phone] Cellulitis of right lower extremity; [place] [address] [place] [id number] TINA (obstructive sleep apnea) [phone] Social History Tobacco Use Types Packs/Day Years [...] / COVID-19? documented as of this encounter Last Filed Vital Signs Vital Sign Reading [...] Mass Index 46.62 05/28/2020 11:11 AM CDT documented in this encounter Patient Instructions Patient InstructionsAdonis Stanford MD - 05/28/2020 11:00 AM CDT Use compression stockings 20-30 mm hg, knee high , day time, closed toes Please see lymphedema therapist, order placed. Lose weight , wear CPAP machine Elevate leg when able Go for Rt leg venous comp study Video visit with me in 1-2 months. documented in this encounter Progress Notes Stacia Lion CMA - 05/28/2020 11:00 AM CDT Eduardo Charles is a 45 year old male who presents for: Chief Complaint Patient presents with ??? RECHECK Ref by Dr. Clark for right leg pain, swelling, and cellulitis; 10/21/19 RLE venous US negative for DVT; notes available in nurse office. *vg Vitals: Vitals: 05/28/20 1111 05/28/20 1112 BP: 106/69 127/80 BP Location: Right arm Left arm Patient Position: Chair Chair Cuff Size: Adult Large Adult Large Pulse: 74 Resp: 16 SpO2: 96% Weight: (!) 383 lb (173.7 kg) Height: 6' 4 (1.93 m) BMI: Estimated body mass index is 46.62 kg/m?? as calculated from the following: Height as of this encounter: 6' 4 (1.93 m). Weight as of this encounter: 383 lb (173.7 kg). Pain Score: Data Unavailable Stacia Lion CMA Adonis Stanford MD - 05/28/2020 11:[address] [facility] INITIAL VASCULAR MEDICINE CONSULT (New Patient visit) PRIMARY HEALTH CARE PROVIDER: Diego Herrmann MD REFERRING HEALTH CARE PROVIDER; Diego Herrmann MD REASON FOR CONSULT: Evaluation and management of vascular causes of right lower extremity swelling, pain and recent prolonged cellulitis requiring 3 different antibiotics and no history of a DVT venousduplex was negative in october 2019. HPI: Eduardo Charles is a 45 year old very pleasant morbidly obese male weighs more than 380 pounds and BMI 46.6, obstructive sleep apnea not using CPAP machine on regular basis developed right lower extremity swelling with cellulitis and weeping blisters seen and evaluated by ID physician Dr. Kapoor and initially treated with doxycycline which did not help then followed by Augmentin and subsequently he took 10 days of Bactrim. He still has a leg swelling. No previous history of a DVT and few months agovenous duplex negative. No recent injury. He denies any chest pain, shortness of breath or palpitations. No fever no chills. He is using soft compression stockings up to the ankle in the right leg. He does have a history of varicose veins on the right lower extremity but no previous interventions. PAST MEDICAL HISTORY Past Medical History: Diagnosis Date ??? Cellulitis of right lower extremity ??? Chronic midline low back pain without sciatica ??? Morbid obesity (H) ??? TINA (obstructive sleep apnea) CURRENT MEDICATIONS none PAST SURGICAL HISTORY: Past Surgical History: Procedure Laterality Date ??? OTHER SURGICAL HISTORY left knee ACL repair ??? OTHER SURGICAL HISTORY Rt knee bursal removal sec infection ??? OTHER SURGICAL HISTORY left shoulder rotator cuff repair ALLERGIES Allergies Allergen Reactions ??? Acetaminophen Nausea ??? Hydrocodone Nausea ??? Hydrocodone-Acetaminophen Nausea FAMILY HISTORY History reviewed. No pertinent family history. VASCULAR FAMILY HISTORY 1st order relative with atherosclerotic PAD: No 1st order relative with AAA: No Family history of Familial Hyperlipidemia No Family History of Hypercoagulable state:No VASCULAR RISK FACTORS 1. Diabetes:No 2. Smoking: quit smoking some time ago. 3. HTN: normotensive 4.Hyperlipidemia: No SOCIAL HISTORY Social History Socioeconomic History ??? Marital status: Spouse name: Not on file ??? Number of children: Not on file ??? Years of education: Not on file ??? Highest education level: Not on file Occupational History ??? Not on file Social Needs ??? Financial resource strain: Not on file ??? Food insecurity Worry: Not on file Inability: Not on file ??? Transportation needs Medical: Not on file Non-medical: Not on file Tobacco Use ??? Smoking status: Former Smoker Packs/day: 0.50 Years: 3.00 Pack years: 1.50 Types: Cigarettes ??? Tobacco comment: quit in 2006 Substance and Sexual Activity ??? Alcohol use: Never Frequency: Never Binge frequency: Never ??? Drug use: Never ??? Sexual activity: Not on file Lifestyle ??? Physical activity Days per week: Not on file Minutes per session: Not on file ??? Stress: Not on file Relationships ??? Social connections Talks on phone: Not on file Gets together: Not on file Attends restoration service: Not on file Active member of club or organization: Not on file Attends meetings of clubs or organizations: Not on file Relationship status: Not on file ??? Intimate partner violence Fear of current or ex partner: Not on file Emotionally abused: Not on file Physically abused: Not on file Forced sexual activity: Not on file Other Topics Concern ??? Not on file Social History Narrative ??? Not on file ROS: General: No change in weight, sleep or appetite. Normal energy. No fever or chills Eyes: Negative for vision changes or eye problems ENT: No problems with ears, nose or throat. No difficulty swallowing. Resp: No coughing, wheezing or shortness of breath CV: No chest pains or palpitations GI: No nausea, vomiting, heartburn, abdominal pain, diarrhea, constipation or change in bowel habits : No urinary frequency or dysuria, bladder or kidney problems Musculoskeletal: No significant muscle or joint pains Neurologic: No headaches, numbness, tingling, weakness, problems with balance or coordination Psychiatric: No problems with anxiety, depression or mental health Heme/immune/allergy: No history of bleeding or clotting problems or anemia. No allergies or immune system problems Endocrine: No history of thyroid disease, diabetes or other endocrine disorders Skin: No rashes,worrisome lesions or skin problems Vascular: Right leg swelling, pain, weeping ulcers and recent history of cellulitis treated with antibiotics x3 No claudication symptoms Previous history of failed right knee bursal surgery for infection EXAM: BP 127/80 (BP Location: Left arm, Patient Position: Chair, Cuff Size: Adult Large) Pulse 74 Resp16 Ht 1.93 m (6' 4) Wt (!) 173.7 kg (383 lb) SpO2 96% BMI 46.62 kg/m?? In general, the patient is a pleasant male in no apparent distress. Morbidly obese. HEENT: NC/AT. PERRLA. EOMI. Sclerae white, not injected. Nares clear. Pharynx without erythema or exudate. Dentition intact. Neck: No adenopathy. No thyromegaly. Carotids +2/2 bilaterally without bruits. No jugular venous distension. Heart: RRR. Normal S1, S2 splits physiologically. No murmur, rub, click, or gallop. The PMI is in the 5th ICS in the midclavicular line. There is no heave. Lungs: CTA. No ronchi, wheezes, rales. No dullness to percussion. Abdomen: Soft, nontender, nondistended. No organomegaly. No AAA. No bruits. Extremities: Vascular: He has a bilateral symmetrical palpable pedal pulses, popliteal pulses and femoral pulses Right lower extremity varicose veins with CEAP 4 CVI He has a classical features of lymphedema of right lower extremity, squaring of the toes, positive stemmer sign, swelling on the dorsum of the right foot. Healing skin lesions on right watkins area Right leg is larger than left side No signs of cellulitis on today's exam Well-healed scar on the bilateral knees Labs: Assessment and Plan: 1. Lymphedema of right lower extremity ( phlebo -lymphedema) 2. Varicose veins of leg with pain, right ( CEAP 4 CVI RT leg) 3. Recent Hx of Cellulitis of right lower extremity This is a very pleasant 45-year-old male morbidly obese with classical features of right lower extremity lymphedema specifically Phlebo- lymphedema and recent history of prolonged cellulitis requiring 3 different courses of antibiotics and healing leg ulcers. He is not using appropriate compression stockings No signs of arterial insufficiency, palpable and dopplerable bilateral pedal pulses He will benefit with compression stockings and elevation of the legs and weight loss Will arrange right lower extremity venous competency studies Referral to lymphedema therapist for MLD, compression etc. Skin care discussed with the patient Reevaluate virtual visit 1 to 2 weeks after imaging studies and or lymphedema therapy evaluation. - LYMPHEDEMA THERAPY REFERRAL; Future - Follow-Up with Vascular Medicine; Future - US Venous Competency Right; Future 4. Morbid obesity (H) 5. TINA (obstructive sleep apnea) He was evaluated and diagnosed TINA but not using CPAP machine regularly Suggested patient to lose weight Utilize CPAP machine If needed discussed with sleep clinic for proper settings - Follow-Up with Vascular Medicine; Future This note was dictated by Pharmax[employer] software ! Thank you for the consultation Copy of this dictation to primary care physician. Adonis Stanford MD, [place], [facility] Vascular Medicine documented in this encounter Plan of Treatment Scheduled Referrals Name Type Priority Associated Diagnoses Order S chedule LYMPHEDEMA THERAPY Referral Routine Lymphedema of right Ex pected: 05/28/2020, REFERRAL lower extremity ( Expires: 1 phlebo -lymphedema) Follow-Up with Vascular Referral Routine Varicose veins of leg Expected: 05/29/2020 Medicine with pain, right ( CEAP (Gurinder roximate), 4 CVI RT leg) Expires: 07/28/2020 Lymphedema of right lower extremity ( phlebo -lymphede ma) Morbid obesity ( H) Cellulitis of right lower extremity TINA (obstructive sleep apnea) documented as of this encounter Results US Venous Competency Right (06/15/2020 2:40 PM CDT) Anatomical Region Laterality Modality Lower Extremity Ultrasound Specimen (Source) Anatomical Location Collection Method / Collectio n Time Received Time / Laterality Volume Impressions 06/22/2020 12:10 PM TIN POT OPERATOR ?Examined by: AVTAR Age: ??45 year old ? Reading : ALEXI ?? INDICATION: ??Lymphedema of right lower [...] with the GSV. ?? A second incompetent flour mixer vein is found in the lateral mid [...] incompetence. 4. ? Right multiple incompeten t flour mixer veins. 5. ? Right varicose vein incom petence. 6. ? The time of incompetence is greater than 500 milliseconds in length. ?? Narrative 06/22/2020 12:10 PM TIN POT OPERATOR Name: ??Eduardo Charles ? Date: June 15, 2020 ? : 1975 Sex: male Adonis Stanford MD [facility] ORDERABLES documented in this encounter Visit Diagnoses Diagnosis Lymphedema of right lower extremity ( ph shakir -lymphedema) - Primary Varicose veins of leg with pain, right ( CEAP 4 CVI RT leg) Morbid obesity (H) Morbid obesity Cellulitis of right lower extremity Cellulitis and abscess of leg, except fo ot TINA (obstructive sleep apnea) Obstructive sleep apnea (adult) (pediatr ic) Varicose veins of leg with pain, right ( CEAP 4 CVI RT leg) Lymphedema of right lower extremity ( ph shakir -lymphedema) Cellulitis of right lower extremity Cellulitis and abscess of leg, except fo ot documented in this encounter Care Teams Industrial Sales Manager Relationship Specialty Start Date End Date Diego Herrmann MD PCP - General 05/13/20 documented as of this encounter
--- OUTSIDE RECORDS SUMMARY | 2022-05-19 10:44 | XMS_ITS | Encounter Summary ---
:1975 Author Organization [facility] Address [address] [place] [address] Care Team Providers Name Role Phone Diego Herrmann MD Primary Care Provider [phone] Adonis Stanford MD Unavailable Encounter Details Date Type Department Care Team Description 07/09/2020 Travel Social History Tobacco Use Types Packs/Day [...] with No / Unsure 07/09/2020 12:49 PM CAP PARTS CUTTER someone who was confirmed or suspected to have Coronavirus / COVID-19? documented as of this encounter Plan of Treatment Not on filedocumented as of this encounter Visit Diagnoses Not on filedocumented in this encounter Care Teams Grinding Supervisor Relationship Specialty Start Date End Date Diego Herrmann MD PCP - General 05/13/20 Adonis Stanford Assigned Heart and Vascular 0 12/17/21 MD Misael Provider [address] [place], [place] [id number] [place] [id number] documented as of this encounter
--- OUTSIDE RECORDS SUMMARY | 2022-05-19 10:44 | XMS_ITS | Encounter Summary ---
:1975 Author Organization [facility] Address [address] [place] [address] Care Team Providers Name Role Phone Diego Herrmann MD Primary Care Provider [phone] Adonis Stanford MD Unavailable [phone] Encounter Details Date Type Department Care Team Description 08/02/2020 Travel Social History Tobacco Use Types Packs/Day [...] with No / Unsure 08/02/2020 4:41 PM ORGANIC GARDENING TEACHER someone who was confirmed or suspected to have Coronavirus / COVID-19? documented as of this encounter Plan of Treatment Not on filedocumented as of this encounter Visit Diagnoses Not on filedocumented in this encounter Care Teams Special Delivery Worker Relationship Specialty Start Date End Date Diego Herrmann MD PCP - General 05/13/20 Adonis Stanford Assigned Heart and Vascular 0 12/17/21 MD Misael Provider [address] [place], [place] [id number] [place] [id number] documented as of this encounter
--- OUTSIDE RECORDS SUMMARY | 2022-05-19 10:44 | XMS_ITS | Encounter Summary ---
:1975 Author Organization [facility] Address [address] [place] [address] Care Team Providers Name Role Phone Diego Herrmann MD Primary Care Provider [phone] Adonis Stanford MD Unavailable [phone] Encounter Details Date Type Department Care Team Description 06/24/2020 Travel Social History Tobacco Use Types Packs/Day [...] been in contact with No / Unsure 06/24/2020 12:48 PM GRAPHIC ENGINEER someone who was confirmed or suspected to have Coronavirus / COVID-19? documented as of this encounter Plan of Treatment Not on filedocumented as of this encounter Visit Diagnoses Not on filedocumented in this encounter Care Teams Clerk Specialist Relationship Specialty Start Date End Date Diego Herrmann MD PCP - General 05/13/20 Adonis Stanford Assigned Heart and Vascular 0 12/17/21 MD Misael Provider [address] [place], [place] [id number] [place] [id number] documented as of this encounter
--- OUTSIDE RECORDS SUMMARY | 2022-05-19 10:44 | XMS_ITS | Encounter Summary ---
:1975 Author Organization [facility] Address [address] [place] [address] Care Team Providers Name Role Phone Diego Herrmann MD Primary Care Provider [phone] Adonis Stanford MD Unavailable [phone] Reason for Visit Rehab Therapy Integrated Services (Routine) - Closed Specialty Diagnoses / Procedures Referred By Contact Refer red To Contact Diagnoses Back pain, falls Weakness order sent to chart [facility] [address] [place], [place] [address] Phone: Fax: Referral ID Status Reason Start Date Expiration Date Visits Requ ested Visits Authorized [id number] Closed 06/30/2020 08/19/2020 365 365 Encounter Details Date Type Department Care Team Description 08/18/2020 Hospital Encounter [facility] Adonis Stanford MD [address] [facility] [address] [place] [address] Rehabilitation Services Ileana Deras, PT [facility] [address] [place] [address] Social History Tobacco Use [...] with No / Unsure 08/18/2020 4:40 PM KEYBOARD INSTRUMENT REPAIRER someone who was confirmed or suspected to have Coronavirus / COVID-19? documented as of this encounter Plan of Treatment Not on filedocumented as of this encounter Visit Diagnoses Not on filedocumented in this encounter Care Teams Nuclear Operator Relationship Specialty Start Date End Date Diego Herrmann MD PCP - General 05/13/20 Adonis Stanford Assigned Heart and Vascular 0 12/17/21 MD Misael Provider [address] [place] [address] documented as of this encounter
--- OUTSIDE RECORDS SUMMARY | 2022-05-19 10:44 | XMS_ITS | Encounter Summary ---
:1975 Author Organization [address] [place] [address] Care Team Providers Name Role Phone Diego Herrmann MD Primary Care Provider [phone] Adonis Stanford MD Unavailable Reason for Visit Rehab Therapy Integrated Services (Routine) - Closed Specialty Diagnoses / Procedures Referred By Contact Refer red To Contact Diagnoses Lymphedema of right lower extremity [facility] [address] [place], [place] [address] Phone: Fax: Referral ID Status Reason Start Date Expiration Date Visits Requ ested Visits Authorized [id number] Closed 06/11/2020 08/19/2020 365 365 Encounter Details Date Type Department Care Team Description 06/24/2020 Hospital Encounter [facility] Adonis Stanford MD [address] [id number] Rehabilitation Services Katherine Koch OT [address] [address] [facility] [address] [place] [address] Social History Tobacco Use Types [...] with No / Unsure 06/24/2020 12:48 PM LATHE SET UP PERSON someone who was confirmed or suspected to have Coronavirus / COVID-19? documented as of this encounter Plan of Treatment Not on filedocumented as of this encounter Visit Diagnoses Not on filedocumented in this encounter Care Teams Channel Business Manager Relationship Specialty Start Date End Date Diego Herrmann MD PCP - General 05/13/20 Adonis Stanford Assigned Heart and Vascular 0 12/17/21 MD Misael Provider [address] [place] [id number] documented as of this encounter
--- OUTSIDE RECORDS SUMMARY | 2022-05-19 10:45 | XMS_ITS | Encounter Summary ---
:1975 Author Organization [facility] [place] Address [address] [place] [address]. [place] [address] Care Team Providers Name Role Phone Diego Herrmann MD Primary Care Provider [phone] Reason for Visit Reason Onset Date Comments Referral 05/12/2020 Encounter Details Date Type Department Care Team Description 05/12/2020 Telephone [facility] Nurse, [facility] Referral [place] [address] [place] [address] Social History Tobacco Use Types Packs/Day Years Used Date Never Assessed Alcohol Habits Answer Date Recorded How often do you have a drink containing alcohol? Never 05/28/2020 How many drinks containing alcohol do you have on a typical Not asked 05/28/2020 day when you are drinking? How often do you have six or more drinks on one occasion? Ne evy 05/28/2020 Comment: Not asked Sex Assigned at Date Recorded Not on file documented as of this encounter Miscellaneous Notes Telephone Encounter - Jojo Witt - 05/13/2020 1:33 PM CDT Eduardo is scheduled with Dr. Stanford on 05/28/2020 in [place]. Eduardo is aware of location, parking andsuite. Jojo Sherman Telephone Encounter - Maddie Samuel RN - 05/12/2020 3:57 PM CDT Referral received via fax on 05/10/20. Notes available in nurse office. Pt referred to [facility] by Dr. Herrmann ([facility]) for right leg pain, swelling,and cellulitis. 10/21/19 RLE venous US report negative for DVT. Pt needs to be scheduled for in person consult with Vascular Medicine. Will route to scheduling to coordinate an appointment at next available. Appt note: Ref by Dr. Clark for right leg pain, swelling, and cellulitis; 10/21/19 RLE venous US negative for DVT; notes available in nurse office. RINA Hernandez, RN-[facility] documented in this encounter Plan of Treatment Not on filedocumented as of this encounter Visit Diagnoses Not on filedocumented in this encounter Care Teams Rehab Office Coordinator Relationship Specialty Start Date End Date Diego Herrmann MD PCP - General 05/13/20 documented as of this encounter
--- OUTSIDE RECORDS SUMMARY | 2022-05-19 10:45 | XMS_ITS | Clinical Summary ---
:1975 Author Organization [employer] [facility] [place] [address] Care Team Providers Name Role Phone [facility] Primary Care Provider Unavailable Allergies Active Allergy Reactions Severity Noted Date Comments Hydrocodone-Acetaminophen Nausea Only 04/23/2018 Medications Medication Sig Dispensed Refills Start Date End Date Status buPROPion (WELLBUTRIN 1 tablet daily 0 03/20/2018 Active XL) 150 mg Extended-Release tablet CONTRAVE 8-90 mg 2 tablets twice a 0 03/20/2018 Active Extended-Release day tablet traZODone (DESYREL) 50 1 tablet at 0 02/15/2018 Active mg tablet bedtime as needed gabapentin (NEURONTIN) 0 08/29/2021 Active 100 mg capsule Active Problems Problem Noted Date Ingrown nail 04/23/2018 Immunizations Name Administration Dates Next Due Influenza, IIV4 08/29/2021, 06/30/2020, 04/17/2019, 10/18 Tdap 08/29/2021, 05/21/2019 Social History Tobacco Use Types Packs/Day Years Used Date Former Smoker Smokeless Tobacco: Never Used Alcohol Use Standard Drinks/Week Comments Yes 0 (1 standard drink = 0.6 oz pure alcoho l) socailly Alcohol Habits Answer Date Recorded How often do you have a drink containing alcohol? Not asked How many drinks containing alcohol do you have on a typical Not asked day when you are drinking? How often do you have six or more drinks on one occasion? No t asked Comment: socailly 04/23/2018 Sex Assigned at Date Recorded Not on file Obstetrics History Last Filed Vital Signs Vital Sign Reading Time Taken Comments Blood Pressure 130/88 05/01/2018 1:32 PM CDT Pulse 80 05/01/2018 1:32 PM CDT Temperature 37.4 ??C (99.4 ??F) 04/23/2018 9:45 AM CDT Respiratory Rate 18 05/01/2018 1:32 PM CDT Oxygen Saturation - - Inhaled Oxygen Concentration - - Weight 167.8 kg (370 lb) 09/28/2021 8:55 AM FIBER MACHINE TENDER Height 193 cm (6' 4) 09/28/2021 8:55 AM FIBER MACHINE TENDER Body Mass Index 45.04 09/28/2021 8:55 AM FIBER MACHINE TENDER Plan of Treatment Health Maintenance Due Date Last Done Comments Depression screening for age 12+ 1987 Hepatitis C screening for age 1005/24/1993 18-79 Colonoscopy through age 75 2020 Lipids for age 45-75 2020 COVID-19 vaccine series (3 - 08/24/2021 03/24/2021, 021 Booster for Pfizer series) Influenza for age 9-49 04/20/2022 08/29/2021, 06/30/2020, 04/17/2019, Additional history exists BMI (ht and wt on same day) for 09/19/2022 09/19/2021, 11/2017 age 18+ Tetanus booster 08/29/2031 08/29/2021, 05/21/2019 Tdap Completed 08/29/2021, 05/21/2019 Results Not on filefrom Last 3 Months Insurance Payer Benefit Plan / Subscriber ID Effective Dates Phone Addre ss Type Group BLUE CROSS BLUE CROSS OF [id number] 2016-Present [address] [place] [address] Care Teams [facility] [employer] [facility] Relationship Specialty Start Date End Date Betty Bonilla PCP - General 04/23/18
== END 2022-05-11 20:18 | disposition home or self-care (01) ==
PROVIDERS: Emergency Provider Family Medicine; PCP Family Medicine
DX: G44.40 Drug-induced headache, not elsewhere classified, not intractable (principal); T38.0X5A Adverse effect of glucocorticoids and synthetic analogues, initial encounter; Y92.019 Unspecified place in single-family (private) house as the place of occurrence of the external cause
CPT/HCPCS: 36415; 70450; 70496; 70498; 80048; 84484; 85025; 85379; 86140; 87502; 87634; 87635; 93005; 96361; 96365; 96375; 99284; J1200; J2765; J7030; Q9967

== ENCOUNTER 2022-05-16 12:49 | Outpatient (CLI) | payer BC, SELFPAY ==
--- NOTE | 2022-05-16 13:00 | MR_ITS ---
[facility] [address] [facility] [address] Phone:?[phone] Fax:?[phone] Referring Physician Information: Suri Gonzalez D.O. [address] [facility] [address] Phone:?[phone] Fax:?[phone] Patient:Omer Charles D.O.B:?1975 Sex:?Male Phone:?[phone] [facility] MRN:?[id number] Exam Date:?05/16/2022 ? EXAM: MRI of the RIGHT SHOULDER, without contrast CLINICAL INFORMATION: Male, 46 years old, with right shoulder pain since sustaining an injury on 02/24/2022. INDICATION: Evaluate for rotator cuff injury. PRIOR SURGERY: None reported. PLAIN FILMS: None available. COMPARISONS: No prior MRIs available. TECHNICAL INFORMATION: Using a 1.5T MR scanner and a localizing surface coil: coronal obliques: PD, T2, STIR sagittal obliques: PD, T2 axials: PD, T2 SEDATION: None CONTRAST: None FINDINGS: Bones: Proximal humerus: No fracture or marrow edema/pathology. No humeral Hill-Sachs or reverse Hill-Sachs lesion/impaction or contusion. Glenoid: No fracture or marrow edema/pathology. No osseous Bankart lesion. Rotator cuff and muscles/tendons: Supraspinatus: Moderate-marked supraspinatus tendinopathy with broad-based intermediate grade partial-thickness undersurface tearing with a superimposed 8 x 10 mm full-thickness tear at the anterior tendon insertion (sagittal T2 series 8 images 6 & 8 and coronal STIR series 4 images 10 & 13). Infraspinatus: Mild infraspinatus tendinopathy, without tendon tear or muscle atrophy. Teres minor: No tendinopathy, tear or atrophy. Subscapularis: Mild to moderate tendinopathy of the superior distal subscapularis of partial-thickness interstitial tearing at the superior leading edge of the tendon over an area measuring 6 x 7 mm (sagittal T2 series 8 image 10 and axial PD series 3 image 16). Deltoid: No strain or atrophy. Coracoacromial arch: Acromion morphology: The acromion has type II morphology. No discrete subacromial osseous spur or os acromiale. Acromiohumeral space: The acromiohumeral space is within normal limits. Coracohumeral space: The coracohumeral space is within normal limits. Acromioclavicular joint: Joint: Moderate-marked AC joint arthropathy with 5 mm of inferior osteophytosis, which results in a supraspinatus contour abnormality (sagittal T2 series 8 image 16 and coronal T2 series 6 image 11). Ligaments: Coracoclavicular ligaments are intact. Bursae: Subacromial-subdeltoid: Mild subacromial-subdeltoid bursitis. Subcoracoid: No convincing subcoracoid bursal thickening/bursitis. Biceps tendon: The long head of the biceps tendon is present within the bicipital groove inferiorly, but becomes slightly medially subluxated at the lesser tuberosity. Mild-moderate tendinopathy and low-grade partial-thickness longitudinal splitting of the intra-articular biceps long head tendon (sagittal T2 series 8 images 814). Glenohumeral joint: Effusion/cyst: Small glenohumeral joint effusion. Articular cartilage: Humeral head: No osteochondral abnormalities. Glenoid: No osteochondral abnormalities. Loose bodies: No discrete intra-articular body within the joint. Labrum:?No discrete labral tear or paralabral cyst identified on this non- arthrographic study. Inferior glenohumeral ligament/axillary pouch:?Mild-moderate thickening of the inferior capsuloligamentous structures (coronal PD series 5 images 13-19). Additionally, there is soft tissue thickening throughout the rotator interval (sagittal PD series 7 images 8-14). IMPRESSION: 1. Moderate-marked supraspinatus tendinopathy with a 10 x 8 mm area of full- thickness anterior insertional footprint tearing, which is superimposed upon broad-based intermediate grade partial-thickness articular surface tear. 2. Findings keeping with a biceps diana injury: -Mild-moderate subscapularis tendinopathy with a 6 x 7 mm of low-grade interstitial tearing at the superior leading edge of the tendon. -Slight medial subluxation the biceps long head tendon at the lesser tuberosity. -Mild-moderate tendinopathy and low-grade partial-thickness longitudinal splitting of the intra-articular biceps long head tendon. 3. Moderate marked AC joint arthropathy with inferior osteophytosis that results in a supraspinatus contour abnormality. Additionally, there is mild subacromial- subdeltoid bursitis. However, the glenohumeral space is normal. 4. Mild infraspinatus tendinopathy, without tear. 5. Findings in keeping with any clinical symptoms of adhesive capsulitis. 6. Small glenohumeral joint effusion. No full-thickness chondral defect or evidence of osteoarthritis. 7. No labral tear or paralabral cyst. BC Electronically signed on 05/16/2022 3:09:00 PM by Wilner Villalba M.D.
== END 2022-05-16 12:50 | disposition home or self-care (01) ==
LOC: MRI 12:49
PROVIDERS: PCP Family Medicine; Visit Provider Family Medicine
DX: M25.511 Pain in right shoulder (principal); M75.101 Unspecified rotator cuff tear or rupture of right shoulder, not specified as traumatic; M75.51 Bursitis of right shoulder; M75.01 Adhesive capsulitis of right shoulder; M25.411 Effusion, right shoulder
CPT/HCPCS: 73221

== ENCOUNTER 2022-05-31 08:31 | Day surgery (SDC) | payer BC, SELFPAY ==
[2022-05-31] VITALS (19 sets, daily range): BP systolic 119–144; BP diastolic 67–89; PULSE 59–83; RESP 16–18; TEMP 36.3–36.6; O2SAT 91–97; BMI 46.5
[2022-05-31] MEDS: SODIUM CHLORIDE 0.9 % (FLUSH) 10 ML SYRINGE IVF (09:26)
[2022-05-31] MEDS: LACTATED RINGERS 1000 ML 1,000 ML 100 ML IV (09:26)
[2022-05-31] MEDS: MIDAZOLAM HCL 1 MG/ML inj IVP (11:38)
[2022-05-31] MEDS: fentaNYL 100 MCG/2 ML inj IVP (11:38)
--- NOTE | 2022-05-31 11:38 | SUR.PREOP ---
TIME?OUT:?1136 PT/Olga ZARATE RN/Beatris ANAYA MDA?VERIFICATION?OF?SURGICAL?SITE,?PROCEDURE,?AND?CONSENT OBTAINED?PRIOR?TO?INVASIVE?PROCEDURE.
--- NOTE | 2022-05-31 11:43 | P.NB_ITS ---
Nerve Block Nerve Block Time Seen by Provider: 11:44 Date Seen: 05/31/22 Type of block requested by surgeon for post-operative analgesia: interscalene Side: right Time out performed: Yes Verification of patient name: Yes Verification of date of : Yes Site marking: site marked Name of person performing procedure: Tae Continuous monitoring Was continuous monitoring of O2 sat, B/P, monitoring analyst, recorded every 15 minutes?: Yes Procedure Checklist: sterile prep, needles and gloves Ultrasound guided. Images saved: Yes Medications given in 5ml increments after negative aspiration: Ropivicaine %: 0.5 mL: 20 Needle gauge: 22 Decadron (mg): 10 Precedex (mcg): 25 Patient tolerated procedure well: Yes Block Charges Block Charge (with Pro Fee): Brachial Plexus Use of Ultrasound Machine for Block: Yes- US Guidance/pain block
[2022-05-31] MEDS: SODIUM CHLORIDE IRRIG SOLUTION 12,000 ML, EPINEPHrine 4 MG IRRIGATION (13:30)
--- NOTE | 2022-05-31 14:09 | PM.ORPRC ---
Procedure Note Date of procedure: 05/31/22 Procedure: PREOPERATIVE DIAGNOSES: 1. Right shoulder rotator cuff tear. 2. Right shoulder AC degenerative joint disease 3. Right shoulder long head of biceps partial-thickness tearing 4. Right shoulder subacromial impingement syndrome. POSTOPERATIVE DIAGNOSES: 1. Right shoulder rotator cuff tear - supraspinatus and upper border subscapularis 2. Right shoulder AC degenerative joint disease. 3. Right shoulder degenerative labral fraying and tearing 4. Right shoulder partial-thickness long head of biceps tearing, low grade 5. Right shoulder subacromial impingement syndrome. NAME OF OPERATION: 1. Right shoulder arthroscopic rotator cuff repair (upper border subscapularis and full-thickness supraspinatus) 2. Right shoulder arthroscopic distal clavicle excision 3. Right shoulder arthroscopic extensive glenohumeral debridement including debridement of labral tissue, long head of biceps tendon tissue, rotator cuff tissue 4. Right shoulder arthroscopic bursectomy, subacromial decompression/partial acromioplasty. SURGEON: Edmundo Shaw MD BATH MIXER: Minh PUTNAM. Of note, a skilled physical therapy assistant was critical for this case to aide in patient positioning, suture manipulation, arm positioning, instrument positioning, and closure. ANESTHESIA: General plus preoperative supraclavicular block. EBL: Less than 25 mL IMPLANTS: Arthrex 2.6 mm self punching FiberTak RC (x2); 4.75 mm BioComposite SwiveLock suture anchor (x1); 5.5 mm BioComposite SwiveLock suture anchor (x1) COMPLICATIONS: None evident INDICATIONS: The patient is a pleasant, 47-year-old male who has experienced right shoulder pain that has been increasing in recent time. Physical exam and imaging were consistent with a rotator cuff tear. Given their findings, as well as the weakness and pain, and inadequate response to nonoperative management, recommendation was made for surgery. FINDINGS: Exam under anesthesia revealed stable shoulder with excellent range of motion. The diagnostic arthroscopy revealed healthy chondral surfaces of the glenohumeral joint. The Subscapularis tendon was torn from its upper border with mild retraction. The long head of the biceps tendon was low-grade partial-thickness tearing but remains within the bicipital groove appropriately. The superior rotator cuff tendon was found to be torn full thickness at the anterior margin measuring approximately 12-15 mm in greatest dimension with mild retraction. The labrum was degeneratively frayed in the anterior and superior aspects. No loose bodies were identified within the pouch or subscapularis recess. PROCEDURE: Following a thorough discussion of risks, benefits, and alternatives, consent was obtained and the right shoulder was marked. The patient was brought to the operating room and placed supine on the operating table. Induction of anesthesia was completed after preoperative supraclavicular block was administered in preop holding. Appropriate time out was performed identifying proper patient, site, and procedure. 2 g IV Ancef was administered within 1 hour of incision preoperatively. The right upper extremity was prepped and draped in the appropriate sterile fashion using ChloraPrep prep. This was after the patient was positioned in the beach chair with their head in neutral alignment and all bony prominences well padded. The shoulder was insufflated with 20mL of normal saline via an 18g spinal needle from a posterior approach. An 11 blade skin incision allowed a blunt trochar to be inserted and diagnostic arthroscopy to be performed with the findings as noted above. An anterior portal was established with an outside in technique. This allowed the probe to be inserted and confirm the diagnostic arthroscopic findings. The shaver was then inserted and allowed debridement of the anterior and superior labrum as well as long of the biceps partial-thickness tearing tissue, and rotator cuff tissue 0 (subscapularis and supraspinatus and infraspinatus far anterior aspect. Following this, the upper border subscapularis was repaired after debriding the lesser tuberosity with the shaver and Elmer cautery. Subscapularis was captured in horizontal mattress fashion with a fiber tape suture. The tails were brought to a single anchor in the lesser tuberosity with excellent reapproximation of the subscap tendon and good excursion/tension. Thereafter, the subacromial space was entered. Here, a complete bursectomy and partial acromioplasty/subacromial decompression was performed with a combination of radiofrequency ablator, the shaver, and a 5.5 mm bur. Additionally, distal clavicle excision was performed with the bur. 8 mm of distal clavicle was resected based on the with of our bur. Further inspection of the supraspinatus and infraspinatus rotator cuff was performed. This identified the tear as noted above. The margins of the tear were debrided, and the greater tuberosity was debrided with a combination of the apollo cautery, shaver, and bur on reverse setting. After gentle decortication, a speed bridge configuration with a medial diana was engaged. 2 medial anchors were placed (2.6 mm self punching FiberTak RC) and the sutures were passed with a fiber link. The eyelet suture tails were then retrieved and tied and cinched down for the medial diana purpose. A tail from each of the medial row anchor FiberTapes were then brought to a lateral row anchor along with 1 of the tails from the medial diana. Excellent reapproximation of the tissue to the greater tuberosity was achieved with broad footprint compression. Prior to anchor city bus driver removal, the eyelet sutures were tugged on for each anchor and found that the anchor had excellent stability within the bone. The shoulder was placed through range of motion and found to be stable. The rotator cuff was re-probed and found to be stable. Instruments were removed. Excess fluid was drained, closure performed with 4-0 Monocryl and Steri-Strips. Dressings were applied. Sling was applied. The patient was awoken from anesthesia and transferred to the PACU in stable condition. A skilled physical therapy assistant was critical for this case to aid in patient positioning, limb positioning, skill to manipulate arthroscopic instruments and camera, suture management, patient safety, and closure. PLAN: 1. Elbow, forearm, wrist and digit range of motion as tolerated. 2. Encouraged ice. 3. Percocet for pain as needed. 4. Sling at all times except for ROM and showering. 5. Follow up with PA visit in 1-2 weeks for wound check. Initiate physical therapy following that visit for passive range of motion. Initiate active assisted range of motion at 4-6 weeks depending on tear size. May do pendulums now.
--- NOTE | 2022-05-31 14:37 | W.ANESCHARGE ---
Anesthesia Charges Start Date/Time Anesthesia Start Date: 05/31/22 Anesthesia Start Time: 12:26 Stop Date/Time Anesthesia Stop Date: 05/31/22 Anesthesia Stop Time: 14:30 Summary Emergency: No
[2022-05-31] MEDS: METOCLOPRAMIDE HCL 5 MG/ML INJ 10 MG IVP (15:23)
--- NOTE | 2022-05-31 15:46 | W.ANESCHARGE ---
Anesthesia Charges Start Date/Time Anesthesia Start Date: 05/31/22 Anesthesia Start Time: 12:26 Stop Date/Time Anesthesia Stop Date: 05/31/22 Anesthesia Stop Time: 14:30 Summary Emergency: No
== END 2022-05-31 16:26 | disposition home or self-care (01) ==
PROVIDERS: PCP Family Medicine; Visit Provider Orthopaedic Surgery Sports Medicine
PROC: (CPT 29805; principal; 2022-05-31 10:15)
DX: M75.121 Complete rotator cuff tear or rupture of right shoulder, not specified as traumatic (principal); M19.011 Primary osteoarthritis, right shoulder; M75.41 Impingement syndrome of right shoulder; S46.111A Strain of muscle, fascia and tendon of long head of biceps, right arm, initial encounter; S43.431D Superior glenoid labrum lesion of right shoulder, subsequent encounter
CPT/HCPCS: 29827; 29826; 29823; 29824; 01630; 64415; 76942; C1713; J0171; J1100; J2250; J2765; J2795; J3010; J7120

== ENCOUNTER 2022-09-28 08:00 | Outpatient (RCR) | payer BC, SELFPAY ==
--- NOTE | 2022-08-31 10:16 | PT.OPDN ---
PT [facility] Out[facility] Daily Note PT [facility] Out[facility] Daily Note Start: 05/09/22 07:47 Freq: Status: Active Protocol: Document 08/31/22 09:33 CJT (Rec: 08/31/22 10:16 CJT [id number]) E-signed By Sage Julian, PT PT OP Daily Progress Note Visit Information Note Type Daily Note,Recert/Progress Note Visit Number [id number] Insurance Authorized Visits 99 Physician Authorized Visits eval and treat Insurance Information Recert Due Date 10/13/22 Insurance Name Blue Cross/Blue Shield Medical Diagnosis M25.511 - R shoulder pain Treating Diagnosis M25.511 - R shoulder pain M25.611 - R shoulder stiffness Z47.89 - orthopedic aftercare Referring MD Shaw/Neo Subjective Subjective Pt doing well. Is using his R UE more and more as the days progress and does not have any concerns at this time. Occasionally struggles to apply deodorant to L axilla but otherwise feels he is fully functional. Precautions Treatment Precautions/Contraindications DOS: 05/31/22 Home Exercise Home Exercise Comments [id number] Objective Other/Pertinent Objective Shoulder AROM: 175/170/100/60( L1) Strength: Flexion 4+/5 MMT Abduction: 5/5 MMT IR: 5/5 MMT ER: 5/5 MMT Empty Can 5/5 MMT *pt notes pain at top of shoulder with each motion but grades pain as 1-3/10, 4-5/10 for empty can Patient Instructed in Risks/Benefits Yes Therapeutic Exercise Therapeutic Exercise Minutes (minutes) 32 Therapeutic Exercise: To Restore Pulleys: flexion, scaption, Functional Status abduction Bent Rows, 10# x 15 ea Bent Extensions, 6# x 15 ea Bent Horizontal abduction, 3# x 15 ea Lat Pulldown, 37.5# 2 x 12 Bicep curl, 22.5# 2 x 12 Tricep push-down 22.5# 2 x 12 Plyo ball toss and catch, fwd/ lateral x 15 ea Ball toss/catch with PT x 10, single arm Treatment Minutes Timed Code Treatment Minutes 32 Total Treatment Time 32 Billing Units Therapeutic Exercise Units 2 Assessment/Impression Assessment/Impression Eduardo is progressing very well at this time with minimal-to- no pain in his R shoulder and his function is continuing to improve as the weeks progress. He is now progressing the resistance for all of his home exercises appropriately and I encouraged him to continue to progress as able. Eduardo's shoulder AROM is full at this time with exception of IR which was measured as 60 degrees and shows a visible mismatch in R vs. L functional IR behind the back. We added two new stretches to his HEP for progressing his IR ROM; will reassess when he returns to our clinic in 2 weeks. His strength was also measured as 5/5 MMT for all motions in R shoulder with exception of flexion which was 4+/5 MMT. He does report discomfort with each of these motions at this time with empty can being most painful (5/10). WE will continue to progress Eduardo's exercises when he returns in two weeks as well as discuss potential discharge or schedule 1-2 follow-up sessions as needed over the next 4-6 weeks. Plan of Care Physical Therapy Goals STG - To be completed in 2-3 weeks: 1. Pt to report consistent use of sling at all times other than showering and PROM exercises to protect integrity of R RTC repair. MET 2. Pt to report consistent use of ice to reduce swelling in surgical shoulder. MET 3. Pt to report reduction in use of opioids as source of pain management to reduce risk of dependency. MET LTG - To be completed in 6-8 weeks: 1. Pt to demonstrate active elevation of surgical limb to 120 degrees, PROM to 150 degrees to progress through rehabilitation protocol as expected and reduce risk of developing adhesive capsulitis . MET 2. Pt will report max of 2/10 pain with activities such as dressing, bathing, cleaning so that they may perform these activities independently with tolerable pain. MET 3. Pt will demo full and pain free shoulder strength and ROM so that they may return to performing activities for enjoyment such as playing drums, playing with kids, etc. 4. Pt to be I with HEP so that they may I manage progression of symptoms. Daily Plan of Care Continue per POC Recertification Information Provider Signature Shows Agreement With POC & Medical Necessity
== END 2023-03-08 23:59 | disposition home or self-care (01) ==
PROVIDERS: PCP Family Medicine; Visit Provider Physician Assistant Surgical
DX: M25.511 Pain in right shoulder (principal); S46.912A Strain of unspecified muscle, fascia and tendon at shoulder and upper arm level, left arm, initial encounter; Z51.89 Encounter for other specified aftercare
CPT/HCPCS: 97016; 97110; 97140; 97161; 97164

== ENCOUNTER 2023-03-30 07:25 | Outpatient (CLI) | payer BC, SELFPAY | END 2023-03-30 07:26 | disposition home or self-care (01) | LOC: NFLDREF 03-31 09:38 | PROVIDERS: PCP Family Medicine; Referring Provider Family Medicine; Visit Provider Family Medicine | DX: E29.1 Testicular hypofunction (principal) | CPT/HCPCS: 82728; 83001; 83002; 84146; 84403 ==

== ENCOUNTER 2023-04-18 13:36 | Outpatient (CLI) | payer BC, SELFPAY ==
--- NOTE | 2023-04-18 13:45 | CRLHL7_ITS ---
For Patients: As a result of the Century Cures Act, medical imaging exams and procedure reports are released immediately into your electronic medical record. You may view this report before your referring provider. If you have questions, please contact your health care provider. Indication: Testicular hypofunction Technique: High-resolution sagittal and coronal, noncontrast T1 weighted sequences through the pituitary gland, axial diffusion, T2 FLAIR sequences are provided. Comparison: CT head 05/11/2022 Findings: Ventricles, sulci and gyri are normal size shape and contour for age. The midline structures are centrally located with no evidence of shift. There are no suspicious intra or extra-axial fluid collections. No abnormal restricted diffusion. Minimal punctate FLAIR hyperintense foci throughout the supratentorial white matter bilaterally. The pituitary gland appears within normal limits in size and configuration on this noncontrast exam. The infundibulum is midline. There is no mass effect on the optic apparatus. Midline structures are unremarkable. Major expected intracranial flow voids are preserved where visualized. Impression: 1. Unremarkable MR appearance of the pituitary gland on this noncontrast exam. 2. No evidence of acute intracranial abnormality. 3. A few scattered punctate foci of FLAIR signal abnormality are noted throughout the supratentorial white matter. These are nonspecific, but can be seen in the setting of migraine headaches, previous trauma, minor chronic microangiopathy, or other remote insult. Dictated by Fatou Hayes MD @ 04/19/2023 11:19:59 AM (Electronically Signed)
== END 2023-04-18 13:37 | disposition home or self-care (01) ==
LOC: MRI 13:36
PROVIDERS: PCP Family Medicine; Visit Provider Family Medicine
DX: E29.1 Testicular hypofunction (principal)
CPT/HCPCS: 70551

== ENCOUNTER 2023-07-30 08:19 | Outpatient (CLI) | payer BC, SELFPAY | END 2023-07-30 08:20 | disposition home or self-care (01) | LOC: NFLDREF 07-31 10:36 | PROVIDERS: PCP Family Medicine; Referring Provider Family Medicine; Visit Provider Family Medicine | DX: E29.1 Testicular hypofunction (principal); R20.2 Paresthesia of skin; E66.01 Morbid (severe) obesity due to excess calories; Z12.5 Encounter for screening for malignant neoplasm of prostate; M54.9 Dorsalgia, unspecified | CPT/HCPCS: 80053; 80061; 82607; 84153; 84403 ==

== ENCOUNTER 2024-11-23 20:08 | Outpatient (CLI) | payer BC, SELFPAY | END 2024-11-23 20:09 | disposition home or self-care (01) | LOC: SLEEP 20:08 | PROVIDERS: PCP Family Medicine; Visit Provider Nurse Practitioner Family | DX: G47.33 Obstructive sleep apnea (adult) (pediatric) (principal) | CPT/HCPCS: 95811 ==